=== PATIENT | female | born 1960 | race Caucasian/White ===

== ENCOUNTER 2017-01-23 10:20 | Day surgery (SDC) | payer BC, OTHER ==
[2017-01-18 16:01] VITALS: BMI 27.8
--- NOTE | 2017-01-22 12:28 | HP ---
HISTORY AND PHYSICAL REASON FOR ADMISSION: Surgery is scheduled for 01/23/2017 HISTORY OF PRESENT ILLNESS: Janie Rutherford is a 56-year-old patient seen with progressive left knee pain. We discussed treatment options. She elected to proceed with left knee arthroscopy. Consent regarding the procedure was obtained. PAST MEDICAL HISTORY: Wge-rotvpho-lubjuripn diabetes, hypertension, hypothyroidism. PAST SURGICAL HISTORY: Carpal tunnel release, section, cholecystectomy, hysterectomy. MEDICATIONS: Celebrex, Lopressor, metformin, Singular, Synthroid, Zoloft. ALLERGIES: SULFA. SOCIAL HISTORY: Patient currently smokes cigarettes. PHYSICAL EXAMINATION: Evaluation left knee range of motion is -2/3to 115 degrees. There is a mild effusion present. There is tenderness along both medial and lateral joint lines. Positive medial Enrrique's. Positive lateral Enrrique's. There is crepitus along the medial and patellofemoral compartments with range of motion. Pain with patellofemoral compression. Ligaments stable. Hip rotation without pain. Distal neurovascular exam intact. Left knee MRI revealed abnormal signal through the medial meniscus. X-RAY: Of the left knee revealed moderate osteoarthritis. IMPRESSION: Internal derangement, left knee with medial meniscal tear. PLAN: Left knee arthroscopy with partial meniscectomy and debridement. Surgery is scheduled for 01/23/2017. MMODL / IJN: [id number] /
[~2017-01-23 10:20] MED LIST: DEXAMETHASONE SOD PHOSPHATE 10 MG/ML 1 ML VIAL IV ONE; HYDROmorphone 0.5 MG/0.5 ML SYRINGE IVP PRN; LACTATED RINGERS 1,000 ML IV SCH; ONDANSETRON 4 MG/2 ML VIAL IVP ONE; ceFAZolin 1,000 MG in DEXTROSE/WATER 1 50ML.BAG IV ONE
[2017-01-23] MEDS ORDERED: LIDOCAINE 1% 20 ML VIAL (10MG/ML) FOR IV START INTRADERMA ONE (10:45)
[2017-01-23 10:54] LABS: Glucose,Whole Blood 90 mg/dL (75-99)
[2017-01-23] MEDS ORDERED: MIDAZOLAM 2 MG/2 ML VIAL ONE (11:39)
[2017-01-23] MEDS ORDERED: SUCCINYLCHOLINE CHLORIDE 100 MG/5 ML SYR IV ONE (11:39)
[2017-01-23] MEDS ORDERED: PROPOFOL 10 MG/ML 20 ML VIAL IV ONE (11:39)
[2017-01-23] MEDS ORDERED: fentaNYL (PF) 50 MCG/ML 2 ML AMP ONE (11:39)
[2017-01-23] MEDS ORDERED: LIDOCAINE 1% INJ 10MG/ML (20 ML MDV) ONE (11:39)
[2017-01-23] MEDS ORDERED: ePHEDrine SULFATE/0.9% NACL/PF 50 MG/5 ML SYRINGE IV ONE (11:39)
[2017-01-23] MEDS ORDERED: BUPIVACAINE (PF) 0.25% 30 ML VIAL SQ ONE ×2 (12:12)
--- NOTE | 2017-01-23 12:35 | P.OP ---
Date of Procedure: 01/23/17 Preoperative Diagnosis: Internal derangement left knee Postoperative Diagnosis: 1. Tear medial and lateral meniscus left knee 2. Grade 2/3 chondromalacia medial femoral condyle left knee 3. Grade 3/4 chondromalacia patellofemoral joint left knee 4. Reactive synovitis medial and suprapatellar compartments left knee Procedure(s) Performed: 1. Arthroscopic partial medial and lateral meniscectomy left knee 2. Arthroscopic chondroplasty medial femoral condyle left knee 3. Arthroscopic chondroplasty patellofemoral joint left knee 4. Arthroscopic partial synovectomy medial and suprapatellar compartments left knee Implants: None Anesthesia: GETA, local Surgeon: Rojelio Lucas Estimated Blood Loss (ml): 5 Pathology: none sent Condition: stable Disposition: PACU Indications for Procedure: 58-year-old patient seen with progressive left knee pain. After treatment options were discussed, she elected to proceed with arthroscopy. Operative Findings: see description of procedure Description of Procedure: Patient was taken to the operative suite. Patient underwent a general anesthetic by the department of anesthesia. Patient was given preoperative antibiotics. The left lower extremity was placed in a well-padded arthroscopic leg piper. The left leg was prepped and draped in the normal sterile orthopedic fashion. A lateral parapatellar and suprapatellar incision was made. Trochars were inserted. Arthroscopy was initiated. Suprapatellar pouch revealed diffuse thick reactive synovitis. The patellofemoral joint appeared articulate congruently. There was grade 3/4 chondromalacia of both the patella and femoral sulcus with osteochondral tears present. The scope was guided into the medial gutter. No loose bodies or plica identified. The scope was then guided into the medial compartment. A medial parapatellar incision was made. Trocar inserted followed by probe. There was a tear involving the posterior horn of the medial meniscus. There were grade 2/3 chondral malacia changes of the medial femoral condyle with some osteochondral tears present. There were grade 2 chondral moist changes of the medial tibial plateau. There was reactive synovitis anteriorly. I performed a partial medial meniscectomy down to stable tissue. I performed a chondroplasty of the medial femoral condyle down to stable tissue and partial synovectomy. The residual meniscus and osteochondral surface were probed and found to be stable. Scope and probe were then guided into the intercondylar notch. Cruciates were identified, probed and found to be stable. The scope and probe were then guided into lateral compartment. There was a small radial tear mid body lateral meniscus. Grade 1 chondral moist changes of the tibial plateau. No loose bodies or reactive synovitis. A partial lateral meniscectomy was performed on a stable tissue. The residual meniscus was stable. The scope was in guided back into the suprapatellar compartment. Introduced a motorized shaver into the super patellar compartment. I debrided some piecemeal fragments of meniscus I encountered. I performed a chondroplasty of both the patella and femoral sulcus getting down to stable osteochondral tissue. I performed a partial synovectomy. The residual osteochondral surfaces appeared stable. We again noted grade 3 and 4 chondral malacia changes. Instruments were now removed from the joint. The joint was infiltrated with .25% Marcaine. Steri-Strips were applied to the portal sites. Sterile dressings were applied. The patient was placed into a MIKAEL hose. No tourniquet was utilized. The patient was awakened, transferred to a bed and taken to recovery stable satisfactory condition.
[2017-01-23 12:38] VITALS: TEMP 97
[2017-01-23 12:59] LABS: Glucose,Whole Blood 111 mg/dL (75-99)
[2017-01-23 14:11] VITALS: RESP 18
[2017-01-23 14:31] VITALS: BP 142/78; PULSE 69
== END 2017-01-23 15:21 | disposition home or self-care (01) ==
LOC: OR 10:20
PROVIDERS: ATTEND Orthopaedic Surgery
DX: S83.242A Other tear of medial meniscus, current injury, left knee, initial encounter (principal); S83.282A Other tear of lateral meniscus, current injury, left knee, initial encounter; X58.XXXA Exposure to other specified factors, initial encounter; M94.262 Chondromalacia, left knee; M65.862 Other synovitis and tenosynovitis, left lower leg; I10 Essential (primary) hypertension; E03.9 Hypothyroidism, unspecified; E11.9 Type 2 diabetes mellitus without complications; Z79.84 Long term (current) use of oral hypoglycemic drugs; Z88.2 Allergy status to sulfonamides; F17.210 Nicotine dependence, cigarettes, uncomplicated
CPT/HCPCS: 29880; J2250; J1100; J2405; J2001; J3010; J0690; J0330; J2704; J1170

== ENCOUNTER → 2017-05-31 | Outpatient (CLI) | payer BC, OTHER | END | disposition home or self-care (01) | LOC: LABPAT 09:36 | PROVIDERS: ATTEND Orthopaedic Surgery | DX: Z01.812 Encounter for preprocedural laboratory examination (principal) | CPT/HCPCS: 87070 ==

== ENCOUNTER 2017-06-24 10:15 | Inpatient (IN) | payer BC, OTHER ==
[2017-06-12 12:08] VITALS: BMI 29.2
--- NOTE | 2017-06-23 13:13 | HP ---
HISTORY AND PHYSICAL Surgery scheduled for 06/24/2017. Janie Rutherford is a 56-year-old patient seen with symptomatic left knee osteoarthritis. After we had treatment options discussed, she elected to proceed with left total knee arthroplasty. Consent regarding procedure was obtained. Medical clearance was provided by Dr. Myron Krueger. PAST MEDICAL HISTORY: Hypothyroidism, hypertension, tad-wzbbzwr-xzybkzsog diabetes, depression. PAST SURGICAL HISTORY: Carpal tunnel release, section, cholecystectomy, hysterectomy, left knee arthroscopy. MEDICATIONS: Celebrex, Lopressor, metformin, [place], singular, Synthroid, Valium, Zoloft. ALLERGIES: SULFA. SOCIAL HISTORY: Patient currently smokes 1 pack cigarettes daily. PHYSICAL EXAMINATION: Evaluation left knee: Range of motion is -3 to 115 degrees. Tenderness along the medial joint line. Positive medial Enrrique's. There is crepitus along the medial and patellofemoral compartments with range of motion. Pain with patellofemoral compression. Ligaments stable. Hip rotation without pain. Distal neurovascular exam is intact. RADIOGRAPHS: Left knee radiographs revealed moderate to severe medial compartment and moderate patellofemoral compartment osteoarthritis. IMPRESSION: 1. Left knee osteoarthritis. 2. Hypertension. 3. Btl-fxwiude-vwnjetwyn diabetes. 4. Hypothyroidism. PLAN: Left total knee arthroplasty. MMODL / IJN: [id number] /
[~2017-06-24 10:15] MED LIST changes: +ACETAMINOPHEN TAB 500 MG TAB PO ONE; -DEXAMETHASONE SOD PHOSPHATE 10 MG/ML 1 ML VIAL IV ONE; -HYDROmorphone 0.5 MG/0.5 ML SYRINGE IVP PRN; -LACTATED RINGERS 1,000 ML IV SCH; +MELOXICAM 7.5 MG TAB PO ONE; -ONDANSETRON 4 MG/2 ML VIAL IVP ONE; +TRANEXAMIC ACID 1,000 MG in SODIUM CHLORIDE 0.9% 50 ML IVPB ONE; -ceFAZolin 1,000 MG in DEXTROSE/WATER 1 50ML.BAG IV ONE; +ceFAZolin IN SWFI 2 GM/20 ML SYRINGE IVP ONE
[2017-06-24] MEDS ORDERED: LACTATED RINGERS 1,000 ML IV ONE (11:02)
[2017-06-24] MEDS ORDERED: LIDOCAINE 1% 20 ML VIAL (10MG/ML) FOR IV START INTRADERMA ONE (11:03)
[2017-06-24 11:23] LABS: Glucose,Whole Blood 106 mg/dL (75-99)
[2017-06-24] MEDS ORDERED: ONDANSETRON 4 MG/2 ML VIAL ONE (11:41)
[2017-06-24] MEDS ORDERED: MIDAZOLAM 2 MG/2 ML VIAL ONE ×2 (11:42→12:46)
[2017-06-24] MEDS ORDERED: MIDAZOLAM 2 MG/2 ML VIAL IVP ONE (11:51)
[2017-06-24] MEDS ORDERED: ROPIVACAINE 246.25 MG, EPINEPHrine 0.5 MG, KETOROLAC 30 MG, cloNIDine HCL/PF 80 MCG, WA... MISCELLANE ONE ×5 (11:52)
[2017-06-24] MEDS ORDERED: fentaNYL (PF) 50 MCG/ML 2 ML AMP ONE (12:46)
[2017-06-24] MEDS ORDERED: SODIUM CHLORIDE 0.9% 100 ML BAG ONE (12:46)
[2017-06-24] MEDS ORDERED: PROPOFOL 10 MG/ML 20 ML VIAL IV ONE (12:46)
[2017-06-24] MEDS ORDERED: TRANEXAMIC ACID 1,000 MG/10 ML VIAL ONE (12:46)
[2017-06-24] MEDS ORDERED: ROPIVACAINE 1,100 MG, SODIUM CHLORIDE 0.9% 330 ML MISCELLANE PRN ×2 (13:51)
--- NOTE | 2017-06-24 13:52 | P.ONQ ---
Anesthesiology Proc Note - PNB - Peripheral Nerve Block Performed Left Adductor Canal Indication: Acute Post-Operative Pain, Requested by physician (Dr Lucas) Sedation Type: Sedate with meaningful contact maintained Preparation: Sterile Dressing Position: Supine Catheter: Indwelling Needle Types: Other (see comment) (You) Needle Size: 100mm (4") Needle Gauge: 21 Technique: Ultrasound (20cc) Blood Aspirated: No Pain Paresthesia on Injection Noted: No Resistance on Injection: Normal Events: Uneventful and Well Tolerated
[2017-06-24] MEDS ORDERED: NALOXONE 0.4 MG/ML 1 ML VIAL IV PRN (14:40)
[2017-06-24] MEDS ORDERED: MORPHINE SULFATE 4MG/4ML SYRG IVP PRN ×3 (14:40)
[2017-06-24] MEDS ORDERED: ONDANSETRON 4 MG/2 ML VIAL IVP PRN (14:40)
[2017-06-24] MEDS ORDERED: HYDROcodone/APAP 7.5-325MG 1 EACH TAB PO PRN (14:40)
--- NOTE | 2017-06-24 14:40 | P.OP ---
Date of Procedure: 06/24/17 Preoperative Diagnosis: Left knee osteoarthritis Postoperative Diagnosis: Left knee osteoarthritis Procedure(s) Performed: Left total knee arthroplasty Implants: 1. Lelia persona size 7 left narrow cemented cruciate retaining femur 2. Lelia persona size E left cemented tibia 3. Lelia persona 10 mm medial congruent polyethylene tibial insert 4. Lelia persona 38 mm all polyethylene cemented patella Anesthesia: regional (Adductor canal catheter), local, spinal Surgeon: Rojelio Lucas Sap Data Analyst #1: Laureano Shine Estimated Blood Loss (ml): 50 Pathology: other (Bone) Condition: stable Disposition: PACU Indications for Procedure: 56-year-old patient seen with symptomatic left knee osteoarthritis. After treatment options were discussed, she elected to proceed with total knee arthroplasty. Operative Findings: See description of procedure Description of Procedure: Patient was taken to the operative suite after having and adductor canal catheter placed by the department of anesthesia. Patient underwent a spinal anesthetic by the department of anesthesia. Patient was given preoperative IV intake antibiotics and TXA. A well-padded tourniquet was placed about the left lower extremity. The lower extremity was then prepped and draped in the normal sterile orthopedic fashion. The extremity was elevated, a tourniquet was insufflated to 300. A standard anterior incision was made sharply through skin. Dissection was taken down through the subcutaneous soft tissues down to the extensor mechanism. A medial arthrotomy was performed, patella was everted and knee was flexed. There was advanced osteoarthritis noted. A proximal tibial cutting guide was positioned. Proximal tibial cut was made. A distal intramedullary femoral cutting guide was positioned, distal femoral cut made. We placed the appropriate sizing guide and selected the appropriate size. A distal 4-in-1 femoral cutting block was positioned, distal femoral cuts were made. We now placed a trial femoral component into position, along with an appropriate size tibial tray and insert. We now took the knee through range of motion and had full extension good flexion and good overall soft tissue balance noted. The patella was everted and a flush cut made with patellar quad tendon. We templated the patella, appropriate drill holes were made. An appropriate trial patella was positioned, knee was taken through full range of motion with the patella tracking very nicely. The trial patella was removed. Drill holes were made through the femoral component. All trial components were removed after marking off the appropriate rotation of the tibia. Retractors were now positioned along the proximal tibia. An appropriate keel punch was made with the appropriate size tibial guide. At this point appropriate size implants were chosen and opened. The joint was irrigated copiously with pulse lavage mechanical irrigation. The posterior capsule was infiltrated local analgesic. We mixed antibiotic methylmethacrylate. Once the methyl methacrylate was ready , the tibial component was cemented into place removing any excess methylmethacrylate. The femoral component was cemented into place removing the removing any excess methylmethacrylate. We then inserted the appropriate size polyethylene tibial insert. We made sure that it was locked into position. We took the knee into full extension, and then back in a flexion making sure we had removed any excess methylmethacrylate. The patellar component was then cemented down and secured with clamp. Excess methylmethacrylate removed. We kept the knee in full extension, patellar clamp in position until methylmethacrylate had hardened. Once it had hardened the patellar clamp was removed. The knee was taken through full range of motion. The patella tracked nicely. There was good soft tissue balancing. The tourniquet was now released. Additional hemostasis was achieved via electrocautery. A second gram of TXA was given. The wound was irrigated with pulse lavage mechanical irrigation. The superficial soft tissues were infiltrated local analgesic. The extensor mechanism was repaired with Vicryl. We checked the repair with range of motion and it was stable. The subcutaneous soft tissues were repaired with Vicryl in layers. The skin was approximated with pernio/Dermabond. Sterile dressings were applied followed by loose web roll and Magdi bandage. The patient was transferred to a bed, and taken to recovery in stable and satisfactory condition. Bill NICHOLE assisted with the procedure.
--- NOTE | 2017-06-24 15:14 | XR ---
EXAMINATION TYPE: XR knee limited LT DATE OF EXAM: 06/24/2017 CLINICAL HISTORY: Postoperative evaluation Two views of the left knee are submitted. Identified are changes of total knee arthroplasty with fem oral and tibial components appearing well seated. Postsurgical soft tissue changes are noted. Align ment is anatomic.
[2017-06-24 15:28] LABS: Glucose,Whole Blood 111 mg/dL (75-99)
[2017-06-24] MEDS ORDERED: hydrALAZINE HCL 20 MG/ML 1 ML VIAL IVP ONE (15:35)
[2017-06-24] MEDS: LACTATED RINGERS 1,000 ML IV SCH (16:07)
[2017-06-24] MEDS: INSULIN ASPART 100 UNIT/ML 1 ML 10 ML VIAL SQ SCH (18:04)
[2017-06-24] MEDS: traMADol 50 MG TAB PO SCH ×2 (18:06→21:13)
[2017-06-24] MEDS ORDERED: LORATADINE 10 MG TAB PO PRN (18:25)
[2017-06-24] MEDS ORDERED: ALBUTEROL NEBULIZED 2.5 MG/3 ML INHALATION PRN (18:27)
[2017-06-24 20:53] LABS: Glucose,Whole Blood 111 mg/dL (75-99)
[2017-06-24] MEDS ORDERED: ENOXAPARIN 30 MG/0.3 ML SYRINGE SQ SCH (21:00)
[2017-06-24] MEDS ORDERED: ATORVASTATIN 40 MG TAB PO SCH (21:00)
[2017-06-24] MEDS ORDERED: MONTELUKAST 10 MG TAB PO SCH (21:00)
[2017-06-24] MEDS ORDERED: SENNOSIDES-DOCUSATE SODIUM 1 EACH TAB PO SCH (21:00)
[2017-06-24] MEDS: metFORMIN 500 MG TAB PO SCH (21:12)
[2017-06-24] MEDS: ceFAZolin IN SWFI 2 GM/20 ML SYRINGE IVP SCH (21:12)
[2017-06-24] MEDS: METOPROLOL TARTRATE 50 MG TAB PO SCH (21:13)
[2017-06-25] MEDS: INSULIN ASPART 100 UNIT/ML 1 ML 10 ML VIAL SQ SCH ×2 (01:15→07:14)
[2017-06-25] MEDS: hydrOXYzine PAMOATE 25 MG CAP PO PRN ×3 (01:30→12:51)
[2017-06-25] MEDS: HYDROcodone/APAP 7.5-325MG 1 EACH TAB PO PRN ×3 (01:31→12:50)
[2017-06-25] MEDS ORDERED: HYDROmorphone 2 MG TAB PO PRN ×2 (03:54→03:55)
[2017-06-25] MEDS ORDERED: HYDROmorphone 4 MG TABLET PO PRN (03:55)
[2017-06-25] MEDS: LACTATED RINGERS 1,000 ML IV SCH (04:50)
[2017-06-25] MEDS: ceFAZolin IN SWFI 2 GM/20 ML SYRINGE IVP SCH (04:50)
[2017-06-25] MEDS ORDERED: LEVOTHYROXINE 75 MCG TAB PO SCH (06:30)
[2017-06-25] MEDS: metFORMIN 500 MG TAB PO SCH (07:15)
[2017-06-25 07:16] LABS: Glucose,Whole Blood 120 mg/dL (75-99)
[2017-06-25] MEDS: METOPROLOL TARTRATE 50 MG TAB PO SCH (07:16)
[2017-06-25 07:35] LABS: Basophils % (A) 0 %; Eosinophils # (A) 0.1 k/uL (0-0.7); Eosinophils % (A) 1 %; HCT 40.3 % (34.0-46.0); HGB 12.9 gm/dL (11.4-16.0); Lymphocytes # (A) 2.5 k/uL (1.0-4.8); Lymphocytes % (A) 26 %; MCH 29.5 pg (25.0-35.0); MCHC 32.1 g/dL (31.0-37.0); MCV 91.8 fL (80.0-100.0); Mean Platelet Volume 7.9; Monocytes # (A) 0.6 k/uL (0-1.0); Monocytes % (A) 6 %; Neutrophils # (A) 6.5 k/uL (1.3-7.7); Neutrophils % (A) 66 %; Platelet Count 162 k/uL (150-450); RBC 4.39 m/uL (3.80-5.40); RDW 13.4 % (11.5-15.5); WBC 9.8 k/uL (3.8-10.6)
--- NOTE | 2017-06-25 08:16 | P.PN ---
Progress Note - Text The patient is status post left adductor canal catheter placement. The catheter was placed for postoperative pain control, status post total left arthroplasty. Ropivacaine 0.2% is infusing at 8 mLs per hour. The patient has no complaints of left lower extremity numbness or weakness. Patient's VAS score is 1- 2-10. Assessment: Patient's adductor canal catheter is in place and working appropriately. Plan: continue infusion and adjust it as needed.
[2017-06-25] MEDS ORDERED: MELOXICAM 7.5 MG TAB PO SCH (09:00)
[2017-06-25] MEDS ORDERED: RIVAROXABAN 10 MG TAB PO SCH (09:00)
[2017-06-25] MEDS ORDERED: SERTRALINE 100 MG TAB PO SCH (09:00)
[2017-06-25] MEDS ORDERED: FAMOTIDINE 20 MG TAB PO SCH (09:00)
[2017-06-25 09:17] VITALS: BP 131/62; PULSE 89; RESP 16; TEMP 97.8
[2017-06-25] MEDS: traMADol 50 MG TAB PO SCH (09:41)
--- NOTE | 2017-06-25 11:04 | P.PN ---
Subjective Progress Note Date: 06/25/17 Principal diagnosis: Status post left total knee arthroplasty Patient seen today resting in her hospital bed, she sleeping, she is easily woken up. She is walked with therapy through the halls, she has not done stairs yet. She admits to some increasing pain in the anterior knee. She denies any headaches, lightheadedness, chest pain or shortness of breath. Objective - Vital Signs Vital signs: Vital Signs Temp 97.8 F 06/25/17 07:00 Pulse 89 06/25/17 07:00 Resp 16 06/25/17 07:00 BP 131/62 06/25/17 07:00 Pulse Ox 95 06/25/17 07:00 Intake & Output 06/24/17 06/25/17 06/25/17 18:59 06:59 18:59 Intake Total 900 560 Output Total 50 Balance 850 560 Intake: IV 900 Intake, IV Titration 560 Amount Lactated Ringers 1,000 ml 560 @ 80 mls/hr IV .[id number] [facility] Rx#:[id number] Output: Estimated Blood Loss 50 Other: Voiding Method Toilet Toilet # Voids 1 - Exam Left lower extremity: Incision is clean, dry, and intact. The prineo tape is in good condition. There is minimal soft tissue swelling and ecchymosis surrounding the medial and lateral aspects of the incision. Calf is soft, no tenderness with palpation. Plantar flexion, dorsiflexion, EHL, FHL are intact. Sensory exam to light touch throughout the extremity is intact, dorsal pedis pulses 2+. - Labs CBC & Chem 7: 06/25/17 06:54 Labs: Abnormal Lab Results - Last 24 Hours (Table) 06/24/17 06/24/17 06/24/17 Range/Units 11:14 15:25 20:45 POC Glucose (mg/dL) 106 H 111 H 111 H (75-99) mg/dL 06/25/17 Range/Units 07:13 POC Glucose (mg/dL) 120 H (75-99) mg/dL Assessment and Plan Plan: Assessment:- 1. Postop day #1 status post left total knee arthroplasty Plan: 1. Pain control, continue supportive oral medication 2. GI and DVT prophylaxis, continue Xarelto 10 mg during inpatient stay 3. Continue work physical therapy, including stairs 4. Daily dressing changes/ice and elevate 5. Medical recommendations 6. Discharge planning: Patient may be discharged home today Time with Patient: Less than 30
[2017-06-25 11:21] LABS: Glucose,Whole Blood 134 mg/dL (75-99)
--- NOTE | 2017-06-25 13:16 | P.CONS ---
History of Present Illness - Reason for Consult Consult date: 06/25/17 - Chief Complaint Medical management. - History of Present Illness This is a history of physical on a 56-year-old white female with known history of remote myocardial infarction and COPD who is essentially admitted for orthopedic procedure repair of her knee. The patient states has had significant wheezing. Again, had a long discussion regarding smoking cessation. I am essentially consult for medical management element. Pain is otherwise well controlled. No voiding symptoms are noted. Review of Systems Constitutional: Denies chills, Denies fever Eyes: denies blurred vision, denies pain Ears, nose, mouth and throat: Denies headache, Denies sore throat Cardiovascular: Denies chest pain, Denies shortness of breath Respiratory: Denies cough Gastrointestinal: Denies abdominal pain, Denies diarrhea, Denies nausea, Denies vomiting Past Medical History Past Medical History: COPD, Diabetes Mellitus, Eye Disorder, Hyperlipidemia, Hypertension, Myocardial Infarction (MS), Osteoarthritis (OA), Thyroid Disorder Additional Past Medical History / Comment(s): MS 15 yrs. ago, states was anxiety related, no further problems, macular degeneration Last Myocardial Infarction Date:: 2000 History of Any Multi-Drug Resistant Organisms: None Reported Past Surgical History: Section, Cholecystectomy, Heart Catheterization , Hysterectomy, Orthopedic Surgery Additional Past Surgical History / Comment(s): Carpal tunnel release bilat, bone removed from both thumbs with grafts, arthroscopy knee Past Anesthesia/Blood Transfusion Reactions: No Reported Reaction, Family History of Problems w/ Anesthesia Additional Past Anesthesia/Blood Transfusion Reaction / Comm: daughter had problem w/intubation Past Psychological History: Anxiety Smoking Status: Current every day smoker Past Alcohol Use History: None Reported Additional Past Alcohol Use History / Comment(s): 1 PPD x 35 yrs, trying to quit , down to 1/2ppd Past Drug Use History: None Reported - Past Family History Mother Family Medical History: Cancer Additional Family Medical History / Comment(s): Colon Father Family Medical History: Cancer Additional Family Medical History / Comment(s): Colon Medications and Allergies Home Medications Medication Instructions Recorded Confirmed Type Levothyroxine Sodium [Synthroid] 75 mcg PO DAILY 10/14/15 06/24/17 History Metoprolol Tartrate [Lopressor] 50 mg PO BID 10/14/15 06/24/17 History Montelukast [Singulair] 10 mg PO HS 10/14/15 06/24/17 History Sertraline [Zoloft] 100 mg PO DAILY 10/14/15 06/24/17 History metFORMIN HCL [Glucophage] 500 mg PO BID 10/14/15 06/24/17 History Diazepam [Valium] 5 mg PO TID PRN 01/18/17 06/24/17 History Rosuvastatin Calcium [Crestor] 20 mg PO HS 01/18/17 06/24/17 History Albuterol Inhaler [Ventolin Hfa 1 - 2 puff INHALATION RT-Q6H PRN 06/12/17 History Inhaler] Carboxymethylcellulose Sodium 1 drop BOTH EYES QID PRN 06/12/17 06/24/17 History [Refresh Tears] Vit A/Vit C/Vit E/Zinc/Copper 1 cap PO DAILY 06/12/17 06/24/17 History [ICAPS SOFTGEL] Loratadine [Claritin] 10 mg PO DAILY PRN 06/18/17 06/24/17 History Docusate [Colace] 100 mg PO DAILY #30 capsule 06/25/17 Rx Famotidine [Pepcid] 20 mg PO DAILY #30 tablet 06/25/17 Rx HYDROcodone/APAP 7.5-325MG [[place] 1 - 2 each PO Q6HR PRN #60 tab 06/25/17 Rx 7.5] RX: Aspirin 325 mg PO BID #60 tab 06/25/17 Rx RX: traMADol HCl [Ultram] 50 mg PO Q6H PRN #40 tab 06/25/17 Rx Allergies Allergy/AdvReac Type Severity Reaction Status Date / Time enoxaparin sodium Allergy Rash/Hives Verified 06/24/17 16:08 [From Lovenox] Iodinated Contrast- Oral and Allergy Anaphylaxis Verified 06/24/17 16:08 IV Dye Sulfa (Sulfonamide Allergy Rash/Hives Verified 06/24/17 16:08 Antibiotics) sulfamethoxazole Allergy Rash/Hives Verified 06/24/17 16:08 [From Bactrim] trimethoprim [From Bactrim] Allergy Rash/Hives Verified 06/24/17 16:08 TB Serum Allergy Anaphylaxis Uncoded 06/24/17 16:08 Physical Exam Vitals: Vital Signs Temp Pulse Pulse Resp BP Pulse Ox 04/10/18 07:00 97.8 F 89 16 131/62 95 06/25/17 01:23 74 18 130/70 92 L 06/24/17 19:40 98.6 F 70 18 106/55 90 L 06/24/17 18:00 66 18 97/67 91 L 06/24/17 17:45 58 L 18 105/59 92 L 06/24/17 17:30 59 L 18 104/77 91 L 06/24/17 17:15 61 18 96/61 91 L 06/24/17 17:00 60 18 133/60 92 L 06/24/17 16:45 59 L 18 120/63 91 L 06/24/17 16:30 55 L 18 126/65 91 L 06/24/17 16:15 97.1 F L 57 L 18 140/77 94 L 06/24/17 15:40 55 L 16 180/89 96 06/24/17 15:25 56 L 16 150/81 98 06/24/17 15:10 56 L 16 152/81 99 06/24/17 14:55 97.6 F 63 16 126/65 98 06/24/17 14:48 60 16 149/75 97 Intake and Output 06/24/17 06/25/17 06/25/17 22:59 06:59 14:59 Intake Total 560 Balance 560 Intake: Intake, IV Titration 560 Amount Lactated Ringers 1,000 ml 560 @ 80 mls/hr IV .[id number] [facility] Rx#:[id number] Other: Voiding Method Toilet Toilet # Voids 1 1 - Constitutional General appearance: no acute distress - EENT Eyes: EOMI - Neck Neck: no lymphadenopathy - Respiratory Respiratory: bilateral: CTA - Cardiovascular Rhythm: regular Heart sounds: normal: S1, S2 Abnormal Heart Sounds: no S3 Gallop - Neurologic Neurologic: CNII-XII intact Results CBC & Chem 7: 06/25/17 06:54 Labs: Abnormal Lab Results - Last 24 Hours (Table) 06/24/17 06/24/17 06/25/17 Range/Units 15:25 20:45 07:13 POC Glucose (mg/dL) 111 H 111 H 120 H (75-99) mg/dL 06/25/17 Range/Units 11:14 POC Glucose (mg/dL) 134 H (75-99) mg/dL Assessment and Plan (1) CAD (coronary artery disease) Current Visit: Yes Status: Acute Code(s): I25.10 - ATHSCL HEART DISEASE OF [place] CORONARY ARTERY W/O ANG PCTRS SNOMED Code(s): 35947095 (2) COPD (chronic obstructive pulmonary disease) Current Visit: Yes Status: Acute Code(s): J44.9 - CHRONIC OBSTRUCTIVE PULMONARY DISEASE, UNSPECIFIED SNOMED Code(s): 51810600 (3) Tobacco abuse Current Visit: Yes Status: Acute Code(s): Z72.0 - TOBACCO USE SNOMED Code( s): 537678451 (4) Osteoarthritis of left knee Current Visit: Yes Status: Acute Code(s): M17.12 - UNILATERAL PRIMARY OSTEOARTHRITIS, LEFT KNEE SNOMED Code(s): 266596938906382 Plan: Reconcile home medications. Pulmonary toilet will be instituted as standard protocol postoperative surgery. We will continue to follow from a medical perspective. Consult home medications. Tobacco cessation again discussed at length with the patient. Time with Patient: Less than 30
[2017-06-25 13:50] LABS: Hemoglobin A1C 6.7 % (4.0-6.0)
== END 2017-06-25 16:00 | disposition home health service (06) | DRG 470 ==
LOC: 2ORMAIN 10:33 → 3SUR 15:02
PROVIDERS: ADMIT Orthopaedic Surgery; ATTEND Orthopaedic Surgery
PROC: 0SRD0J9 Replacement of Left Knee Joint with Synthetic Substitute, Cemented, Open Approach (ICD-10-PCS; principal; 2017-06-24 13:00)
DX: M17.12 Unilateral primary osteoarthritis, left knee (principal); E03.9 Hypothyroidism, unspecified; I10 Essential (primary) hypertension; F32.9 Major depressive disorder, single episode, unspecified; E11.9 Type 2 diabetes mellitus without complications; F17.210 Nicotine dependence, cigarettes, uncomplicated; I25.10 Atherosclerotic heart disease of native coronary artery without angina pectoris; J44.9 Chronic obstructive pulmonary disease, unspecified; H35.30 Unspecified macular degeneration; E78.00 Pure hypercholesterolemia, unspecified; F41.9 Anxiety disorder, unspecified; Z79.84 Long term (current) use of oral hypoglycemic drugs; Z90.49 Acquired absence of other specified parts of digestive tract; Z90.710 Acquired absence of both cervix and uterus; Z79.899 Other long term (current) drug therapy; Z79.891 Long term (current) use of opiate analgesic; Z88.2 Allergy status to sulfonamides; I25.2 Old myocardial infarction; Z71.6 Tobacco abuse counseling; Z80.0 Family history of malignant neoplasm of digestive organs; Z79.82 Long term (current) use of aspirin; Z88.7 Allergy status to serum and vaccine; Z88.8 Allergy status to other drugs, medicaments and biological substances; Z88.1 Allergy status to other antibiotic agents; Z91.041 Radiographic dye allergy status; Z79.1 Long term (current) use of non-steroidal anti-inflammatories (NSAID)
CPT/HCPCS: 83036; 85025; 88300

== ENCOUNTER → 2018-02-05 | Outpatient (CLI) | payer BC, OTHER ==
--- NOTE | 2018-02-05 11:37 | MR ---
EXAMINATION TYPE: MR lumbar spine wo con DATE OF EXAM: 02/05/2018 9:37 AM COMPARISON: NONE HISTORY: Low back pain, left hip and leg pain Multiplanar, MultiSpin echo imaging of the lumbar spine was performed. L1-L2: Normal disc appearance without desiccation. No herniation, protrusion or disc bulging. No ca nal stenosis is present. Foramina are patent bilaterally. L2-L3: Normal disc appearance without desiccation. No herniation, protrusion or disc bulging. No ca nal stenosis is present. Foramina are patent bilaterally. L3-L4: Normal disc appearance without desiccation. No herniation, protrusion or disc bulging. No ca nal stenosis is present. Foramina are patent bilaterally. L4-L5: Mild decreased signal ossified compatible with degenerative disc disease. Mild effacement vent ral thecal sac. No evidence for central stenosis or disc herniation. Grade 1 anterolisthesis L4 on L5 of 3 mm related to severe facet joint arthropathy. Moderate bilateral foraminal encroachment. L5-S1: Severe disc desiccation identified. Broad-based subligamentous herniation noted with effacemen t of the ventral thecal sac and right lateral recess stenosis and right foraminal encroachment. Grade 1 anterolisthesis L5 on S1 measuring 6 mm. Severe facet joint arthropathy. Bilateral foraminal encro achment right greater than left. Lumbar segments are intact. No paraspinal masses are identified. Conus medullaris has a normal appe arance. IMPRESSION: 1. Degenerative disc disease L4-5 and L5-S1. 2. Broad-based subligamentous herniation L5-S1 with right lateral recess stenosis and right foraminal encroachment.
== END | disposition home or self-care (01) ==
LOC: RADMRIMAIN 08:20
PROVIDERS: ATTEND Orthopaedic Surgery
DX: M48.07 Spinal stenosis, lumbosacral region (principal); M51.37 Other intervertebral disc degeneration, lumbosacral region
CPT/HCPCS: 72148

== ENCOUNTER → 2018-03-26 | Outpatient (CLI) | payer BC, OTHER ==
[2018-03-25 15:22] VITALS: BMI 27.8
[2018-03-26 14:44] VITALS: BP 133/93; PULSE 62; RESP 18
--- NOTE | 2018-03-27 06:36 | P.PAINCN ---
History of Present Illness - Reason for Consult Consult date: 03/26/18 - History of Present Illness This is [facility] consultation for this 57 years old female with a chronic history of severe low back pain, pain started 5 years ago, she denies any initiating event, patient reported that her pain increased significantly over the last 6 months, the pain is constant and localized in the low back area, and radiated to the left lower extremity, she denies any fever or numbness but she denies any change in the bowel movement or urination she is currently on [place] 7.5/325 when necessary, and she continued to have pain, but the pain medication helping her to be able to do activities of daily livings and able to function, she reports intensity of the pain is 6/10 and increases with activity to 8 or 9/ 10, she denies any side effect of the medication, and she is getting prescription refills from her primary care Past Medical History Past Medical History: Diabetes Mellitus, Deep Vein Thrombosis (DVT), Myocardial Infarction ([place]), Osteoarthritis (OA), Thyroid Disorder Additional Past Medical History / Comment(s): chronic back pain-herniated discs Last Myocardial Infarction Date:: 2000 History of Any Multi-Drug Resistant Organisms: None Reported Past Surgical History: Section, Cholecystectomy, Heart Catheterization , Hysterectomy, Joint Replacement, Orthopedic Surgery Additional Past Surgical History / Comment(s): Lt total knee,Carpal tunnel release bilat, bone remove from both thumbs with grafts,vein stripping Past Anesthesia/Blood Transfusion Reactions: No Reported Reaction, Family History of Problems w/ Anesthesia Additional Past Anesthesia/Blood Transfusion Reaction / Comm: daughter had problem w/intubation Past Psychological History: Anxiety Smoking Status: Current every day smoker Past Alcohol Use History: None Reported Additional Past Alcohol Use History / Comment(s): Smokes 1 PPD x 35 yrs. Past Drug Use History: None Reported - Past Family History Mother Family Medical History: Cancer Additional Family Medical History / Comment(s): Colon Father Family Medical History: Cancer Additional Family Medical History / Comment(s): Colon Medications and Allergies Home Medications Medication Instructions Recorded Confirmed Type Levothyroxine Sodium [Synthroid] 75 mcg PO DAILY 10/14/15 03/26/18 History Metoprolol Tartrate [Lopressor] 37.5 mg PO BID 10/14/15 03/26/18 History Montelukast [Singulair] 10 mg PO HS 10/14/15 03/26/18 History Sertraline [Zoloft] 100 mg PO DAILY 10/14/15 03/26/18 History metFORMIN HCL [Glucophage] 500 mg PO BID 10/14/15 03/26/18 History Diazepam [Valium] 5 mg PO TID PRN 01/18/17 03/26/18 History Rosuvastatin Calcium [Crestor] 20 mg PO HS 01/18/17 03/26/18 History Albuterol Inhaler [Ventolin Hfa 1 - 2 puff INHALATION RT-Q6H PRN 06/12/17 History Inhaler] Carboxymethylcellulose Sodium 1 drop BOTH EYES QID PRN 06/12/17 03/26/18 History [Refresh Tears] Vit A/Vit C/Vit E/Zinc/Copper 1 cap PO DAILY 06/12/17 03/26/18 History [ICAPS SOFTGEL] Loratadine [Claritin] 10 mg PO DAILY PRN 06/18/17 03/26/18 History HYDROcodone/APAP 7.5-325MG [[place] 1 - 2 each PO Q6HR PRN #60 tab 06/25/17 Rx 7.5] Aspirin 325 mg PO DAILY 03/25/18 03/26/18 History rOPINIRole HCL 0.5 mg PO HS 03/25/18 03/26/18 History Allergies Allergy/AdvReac Type Severity Reaction Status Date / Time enoxaparin sodium Allergy Rash/Hives Verified 03/26/18 14:32 [From Lovenox] Iodinated Contrast- Oral and Allergy Anaphylaxis Verified 03/26/18 14:32 IV Dye Sulfa (Sulfonamide Allergy Rash/Hives Verified 03/26/18 14:32 Antibiotics) sulfamethoxazole Allergy Rash/Hives Verified 03/26/18 14:32 [From Bactrim] trimethoprim [From Bactrim] Allergy Rash/Hives Verified 03/26/18 14:32 TB Serum Allergy Anaphylaxis Uncoded 03/26/18 14:32 Physical Exam Vitals: Vital Signs Pulse Resp BP 03/26/18 14:33 62 18 133/93 Intake and Output 03/26/18 03/26/18 03/27/18 14:59 22:59 06:59 Other: Weight 72.575 kg Social history : smoker , NO ETOH Review of Systems : 1- Constitutional : no chills , no fever , no night sweats , 2- Ears : no ear discharge , no change in hearing 3-Nose, Mouth ,Throat ; no bleeding gums, no sore throat , no epistaxis , 4-Cardiovascular : Denies chest pain, , no orthopnea , no palpitation 5-Respiratory : Denies cough , no dyspnea , no hemoptysis 6-Gastrointestinal :, no change in bowel habits , no coffee- ground emesis . 7-Genitourinary : No hematuria , no discharge , no incontinence, 8-Musculoskeletal : No gait dysfunction , report low back pain , 9- Neurological : no ataxia , no tremor , no sezure , 10-Psychatric , no suicidal ideation no hallucination 11- Endocrine : no cold intolerence , no polyuria , no polydypsia , 12-Hematologic : no easy bleeding , no easy brusing , 13-Allergic / immunology : no angioedema , no wheezing ,no allergic rhinitis 14-Integumentary : no brttle nails , no change hair / nails , no foot/leg ulcers . Physical Examinations : 1-Constitutional : Cooperative , not in acute distress . 2-HEENT : nech ; supple , no Lymphadenopathy , no Thyromegaly , :eyes , no icterus, no photophobia . ENT : , normal oropharynx , no Thrush 3- Respiratory : Chest clear to auscultations Bilaterally , no wheezing 4- Cardiovascular : regular rate and rhythem , S1 , S2 , no S3 , no S4. 5- Gastrointestinal: abdomen soft no tenderness , no organomegally . 6- Genitourinary : Defferred . 7-Integumentary : No cellulitis , no ulcers , normal skin turgor , no cyanotic . 8- neurologic : Cranial nerve II to XII intact , no focal neurological deffecit 9-psychatric : alert , oriented X 3 , appropriate affect , intact judgment and insight . 10-Lymphatic : no Lymphadenopathy. 11- musculoskeltal: Antalgic gait Lumber spine moter stegnth lower extremities ,thigh and legs 5/5 Right side , 5/5 Left side deep tendon reflexes : normal Knee Jerk , normal ankle Jerk positive lumber facet Loading Test bilaterally Range of motion of the lumbar spine Flexion 30 degrees, extension 10 degrees strait leg raising test , positive at 30 degree on the left side, negative on the right Fabere test negative RT and positive LT . Results Comments: MRI of the lumbar spine L4 5 lumbar degenerative disc disease and foraminal stenosis and severe facet arthropathy L5-S1 disc herniation and severe facet arthropathy Assessment and Plan Plan: Assessment and plan= 1-lumbar radiculopathy 2-lumbar disc herniation 3-lumbar spondylosis with lumbar facet arthropathy. Patient had multifactorial causes of her low back pain, the best option at this time is to schedule her to have diagnostic medial branch block lumbar area L3 4/L45/L5-S1 , because the clinical examination support that most of the pain is coming from the facetogenic component, if positive then we will do the radiofrequency ablation of the medial branch , patient should continue to use her medication [place] 7.5/325 , she could benefit from Neurontin 300 mg daily at bedtime increased to twice a day later on Time with Patient: Greater than 30 PQRS Measure Charge Sheet PQRS Narrative: Smoking Status Current every day smoker Do You Want the Pneumonia No Vaccine AT THIS TIME? Blood Pressure 133/93 Pain Intensity [Bilateral 7 Lower Back] Hx Alcohol Use (MH) No Home Medications: Ambulatory Orders Levothyroxine Sodium [Synthroid] 75 mcg PO DAILY 10/14/15 Metoprolol Tartrate [Lopressor] 37.5 mg PO BID 10/14/15 Montelukast [Singulair] 10 mg PO HS 10/14/15 Sertraline [Zoloft] 100 mg PO DAILY 10/14/15 metFORMIN HCL [Glucophage] 500 mg PO BID 10/14/15 Diazepam [Valium] 5 mg PO TID PRN 01/18/17 Rosuvastatin Calcium [Crestor] 20 mg PO HS 01/18/17 Albuterol Inhaler [Ventolin Hfa Inhaler] 1 - 2 puff INHALATION RT-Q6H PRN Carboxymethylcellulose Sodium [Refresh Tears] 1 drop BOTH EYES QID PRN 06/12/17 Vit A/Vit C/Vit E/Zinc/Copper [ICAPS SOFTGEL] 1 cap PO DAILY 06/12/17 Loratadine [Claritin] 10 mg PO DAILY PRN 06/18/17 HYDROcodone/APAP 7.5-325MG [[place] 7.5] 1 - 2 each PO Q6HR PRN #60 tab 06/25/17 Aspirin 325 mg PO DAILY 03/25/18 rOPINIRole HCL 0.5 mg PO HS 03/25/18
== END | disposition home or self-care (01) ==
LOC: PNWHC3 13:32
PROVIDERS: ATTEND Specialist
DX: M51.16 Intervertebral disc disorders with radiculopathy, lumbar region (principal); M47.26 Other spondylosis with radiculopathy, lumbar region; M46.96 Unspecified inflammatory spondylopathy, lumbar region; F17.200 Nicotine dependence, unspecified, uncomplicated; E11.9 Type 2 diabetes mellitus without complications; M19.90 Unspecified osteoarthritis, unspecified site; F41.9 Anxiety disorder, unspecified; I25.2 Old myocardial infarction; Z90.49 Acquired absence of other specified parts of digestive tract; Z90.710 Acquired absence of both cervix and uterus; Z79.899 Other long term (current) drug therapy; Z79.84 Long term (current) use of oral hypoglycemic drugs; Z79.82 Long term (current) use of aspirin; Z91.041 Radiographic dye allergy status; Z88.2 Allergy status to sulfonamides; Z88.7 Allergy status to serum and vaccine; Z98.890 Other specified postprocedural states
CPT/HCPCS: 99211

== ENCOUNTER 2018-04-08 08:34 | Day surgery (SDC) | payer BC, OTHER ==
[2018-04-04 15:10] VITALS: BMI 28.0
[~2018-04-08 08:34] MED LIST changes: -ACETAMINOPHEN TAB 500 MG TAB PO ONE; -MELOXICAM 7.5 MG TAB PO ONE; +SODIUM CHLORIDE 0.9% 500 ML 500 ML IV SCH; -TRANEXAMIC ACID 1,000 MG in SODIUM CHLORIDE 0.9% 50 ML IVPB ONE; -ceFAZolin IN SWFI 2 GM/20 ML SYRINGE IVP ONE
[2018-04-08 09:15] VITALS: RESP 18; TEMP 97.4
[2018-04-08] MEDS ORDERED: LIDOCAINE 1% 20 ML VIAL (10MG/ML) FOR IV START INTRADERMA ONE (09:33)
[2018-04-08] MEDS ORDERED: LACTATED RINGERS 1,000 ML IV ONE (09:33)
[2018-04-08 09:34] LABS: Glucose,Whole Blood 90 mg/dL (75-99)
--- NOTE | 2018-04-08 10:21 | P.PCN ---
Date of Procedure: 04/08/18 Procedure(s) Performed: PREOPERATIVE DIAGNOSIS : 1- Lumbar spondylosis with Facet Arthropathy without myelopathy . 2- Lumber degenerative disc disease POSTOPERATIVE DIAGNOSIS: 1- Lumbar spondylosis with Facet Arthropathy without myelopathy . 2- Lumber degenerative disc disease PROCEDURE: Diagnostic bilateral L3 -4 , L4 -5 , and L5-S1 medial branch block under fluoroscopy ANESTHESIA: Local with Ropivacain 0.5 % 6 ml , moderate sedation with intravenous Versed mg and Fentanyl mcg. EBL: Minimal COMPLICATION: None. IV FLUIDS: 100 mL of normal saline. PROCEDURE INDICATION: Chronic low back pain secondary to Facet arthropathy unresponsive to conservative treatment. PROCEDURE DESCRIPTION: the patient was seen and identified in the preop holding area , risks and benefits and possible complications of the procedure and alternative were discussed with the patient, and the patient agreed to proceed with the procedure and signed the consent IV was started and vital signs monitored during the procedure and fluoroscopy was used to maximize the benefit and accuracy of the needle placement, and sedation was given to decrease patient anxiety, patient was taken to the procedure room and placed in prone position vital signs monitored in the back prepped with chlorhexidine X3 then under strict sterile technique using a right oblique fluoroscopy ,the junction of the transverse process and the superior articulating process of the right L3- 4 , L4- 5, and L5-S1 vertebra which corresponding to the fluoroscopy image of the eye of the Dmitri dog on the block side for the medial branches and subsequently , after local infiltration of skin and subcu tissuies with Ropivacaine 0.5 % , one mL at each level , then 22-gauge Quincke-type needles , 3 needle was used , each one of them placed at the junction of the base of the transverse process and the superior articular process at the appropriate level, and the needle was advanced until the periosteum contacted, needle placement confirmed with AP oblique and lateral view and after appropriate needle placement confirmed, and after negative aspiration for heme and CSF and there was no paresthesia 1-1/2 mL of Ropivacaine 0.5% mixed with 20 mg Depo-medrol , then half mL injected at each level after negative aspiration the needle subsequently removed and the same procedure repeated for the left side at left side at L3-4, L4- 5 and L5-S1 levels. At the end of the procedure and the needles removed and a bandage applied after the skin was cleaned the cleaning solution patient taken to recovery room in stable condition and monitors in the recovery room for 20-30 minutes and discharged home in stable condition after discharge criteria met and patient will follow up with the pain clinic in 2-4 weeks
[2018-04-08] MEDS ORDERED: IV FLUID CONTINUATION 1,000 ML IV ONE (10:25)
--- NOTE | 2018-04-08 10:40 | FL ---
EXAMINATION TYPE: FL guided pain mgmt statistic DATE OF EXAM: 04/08/2018 CLINICAL HISTORY: Low back pain. TECHNIQUE: Fluoroscopy. COMPARISON: None. FINDINGS: Fluoroscopic guidance was provided during pain relief procedure performed by Dr. Sorensen . A total of 4 seconds of fluoroscopic time was utilized during the procedure and four spot images a re acquired. Images acquired shows needle localization at several levels in the lower lumbar spine o ff the midline. IMPRESSION: As Above.
[2018-04-08 10:43] VITALS: BP 149/78; PULSE 61
== END 2018-04-08 11:23 | disposition home or self-care (01) ==
LOC: ORPAIN 08:34
PROVIDERS: ATTEND Specialist
DX: G89.29 Other chronic pain (principal); M47.816 Spondylosis without myelopathy or radiculopathy, lumbar region; M51.36 Other intervertebral disc degeneration, lumbar region; Z88.2 Allergy status to sulfonamides; Z88.8 Allergy status to other drugs, medicaments and biological substances; Z91.041 Radiographic dye allergy status
CPT/HCPCS: 64493; 64494; 64495; J2250; J1030; J3010; 99152

== ENCOUNTER 2018-04-23 08:03 | Day surgery (SDC) | payer BC, OTHER ==
[2018-04-22 08:49] VITALS: BMI 28.3
[2018-04-23 09:07] VITALS: TEMP 96.9
[2018-04-23] MEDS ORDERED: LACTATED RINGERS 1,000 ML IV ONE (09:08)
[2018-04-23 09:09] LABS: Glucose,Whole Blood 102 mg/dL (75-99)
[2018-04-23] MEDS ORDERED: LIDOCAINE 1% 20 ML VIAL (10MG/ML) FOR IV START INTRADERMA ONE (09:09)
--- NOTE | 2018-04-23 10:20 | P.PCN ---
Date of Procedure: 04/23/18 Surgeon: Nicole Faulkner Pathology: none sent Condition: stable Disposition: PACU Description of Procedure: PREOPERATIVE DIAGNOSIS : 1- Lumbar spondylosis with Facet Arthropathy without myelopathy . 2- Lumber degenerative disc disease POSTOPERATIVE DIAGNOSIS: 1- Lumbar spondylosis with Facet Arthropathy without myelopathy . 2- Lumber degenerative disc disease PROCEDURE: Diagnostic bilateral L3 -4 , L4 -5 , and L5-S1 medial branch block under fluoroscopy#2 ANESTHESIA: Local with 1% lidocaine; IV moderate conscious sedation with Versed 2 mg and fentanyl 100 g . EBL: Negligible COMPLICATION: None. PROCEDURE INDICATION: Chronic low back pain secondary to Facet arthropathy unresponsive to conservative treatment. PROCEDURE DESCRIPTION: the patient was seen and identified in the preop holding area , risks and benefits and possible complications of the procedure and alternatives were discussed with the patient, and the patient agreed to proceed with the procedure and signed the consent. IV was started and vital signs monitored during the procedure and fluoroscopy was used to maximize the benefit and accuracy of the needle placement, sedation was given to decrease patient anxiety, patient was taken to the procedure room and placed in prone position vital signs monitored. The patient was brought into the procedure room and placed in prone position. Skin was prepped with Chloraprep and draped in a sterile manner. Lidocaine 1 % was used to numb the skin up at the target points that were chosen as follows : at the L5-S1 level which corresponds to the dorsal ramus of L5 the target points were at the superior medial aspect of the sacral ala on each side of the spine on the AP view of fluoroscopy, and for theL2, L3 and L4 medial branches the target points were the connection between the transverse process and the superior to go process of L3, L4 and L5 respectively on the oblique views of fluoroscopy. I used 25-gauge 3-1/2 inch Quincke spinal needles for this procedure and after contacting bone at the target points mentioned above I injected 1 mL of a mixture of Kenalog 40 mg +7 MLS of Marcaine 0.5% PF . Patient tolerated procedure well. At the end of the procedure the needles removed and a bandage applied after the skin was cleaned the cleaning solution. patient was then taken to the recovery room in stable condition and monitored in the recovery room for 20-30 minutes and discharged home in stable condition after discharge criteria met .
[2018-04-23] MEDS ORDERED: IV FLUID CONTINUATION 1,000 ML IV ONE ×2 (10:22)
[2018-04-23 10:28] VITALS: RESP 18
--- NOTE | 2018-04-23 10:32 | FL ---
EXAMINATION TYPE: FL guided pain mgmt statistic DATE OF EXAM: 04/23/2018 HISTORY: Pain 7 sec
[2018-04-23 10:44] VITALS: BP 120/67; PULSE 64
== END 2018-04-23 11:00 | disposition home or self-care (01) ==
LOC: ORPAIN 08:03
PROVIDERS: ATTEND Anesthesiology
DX: G89.29 Other chronic pain (principal); M47.816 Spondylosis without myelopathy or radiculopathy, lumbar region; M51.36 Other intervertebral disc degeneration, lumbar region; E11.9 Type 2 diabetes mellitus without complications; I10 Essential (primary) hypertension; Z79.82 Long term (current) use of aspirin; Z88.2 Allergy status to sulfonamides; Z88.8 Allergy status to other drugs, medicaments and biological substances; Z88.1 Allergy status to other antibiotic agents; Z91.041 Radiographic dye allergy status
CPT/HCPCS: 64493; 64494; 64495; J2250; J3301; J3010; 99152

== ENCOUNTER → 2018-05-19 | Outpatient (CLI) | payer BC, OTHER ==
[2018-05-19 15:14] VITALS: BP 147/83; PULSE 71; RESP 16
--- NOTE | 2018-05-20 07:17 | P.PAINPG ---
Subjective Progress Note Date: 05/19/18 This is follow up visit ,for this 57 years old female with a chronic history of severe low back pain, she is diagnosed with lumbar spondylosis with lumbar facet arthropathy, lumbar disc herniation, status post diagnostic medial branch block lumbar area at L34 /L4 5/L5-S1 X2 , she reported that the pain was 9/10 before the first diagnostic block block to 4/10 after the block, and she gets similar result after the second diagnostic medial branch block, the pain relief was for short-term, and currently she is complaining of pain, the pain is constant and localized in the low back area, and radiated to the left lower extremity, she denies any fever or numbness but she denies any change in the bowel movement or urination she is currently on [place] 7.5/325 when necessary, and she continued to have pain, but the pain medication helping her to be able to do activities of daily livings and able to function, she reports intensity of the pain is 6/10 and increases with activity to 8 or 9/10, she denies any side effect of the medication, and she is getting prescription refills from her primary care Physical Examinations : 1-Constitutional : Cooperative , not in acute distress . 2-HEENT : nech ; supple , no Lymphadenopathy , no Thyromegaly , :eyes , no icterus, no photophobia . ENT : , normal oropharynx , no Thrush 3- Respiratory : Chest clear to auscultations Bilaterally , no wheezing 4- Cardiovascular : regular rate and rhythem , S1 , S2 , no S3 , no S4. 5- Gastrointestinal: abdomen soft no tenderness , no organomegally . 6- Genitourinary : Defferred . 7-Integumentary : No cellulitis , no ulcers , normal skin turgor , no cyanotic . 8- neurologic : Cranial nerve II to XII intact , no focal neurological deffecit 9-psychatric : alert , oriented X 3 , appropriate affect , intact judgment and insight . 10-Lymphatic : no Lymphadenopathy. 11- musculoskeltal: Antalgic gait Lumber spine moter stegnth lower extremities ,thigh and legs 5/5 Right side , 5/5 Left side deep tendon reflexes : normal Knee Jerk , normal ankle Jerk positive lumber facet Loading Test bilaterally Range of motion of the lumbar spine Flexion 30 degrees, extension 10 degrees strait leg raising test , positive at 30 degree on the left side, negative on the right Fabere test negative RT and positive LT . Results Comments: MRI of the lumbar spine L4 5 lumbar degenerative disc disease and foraminal stenosis and severe facet arthropathy L5-S1 disc herniation and severe facet arthropathy Assessment and Plan Patient had multifactorial causes of her low back pain, patient had good result after the diagnostic medial branch block lumbar area L3 4/L45/L5-S1 Patient will be good candidate to have radiofrequency ablation medial branch lumbar area L3 4, L4 5, L5-S1, will do the left side first then later on we'll do the right side Objective - Vital Signs Vital signs: Vital Signs Temp Pulse 71 05/19/18 15:05 Resp 16 05/19/18 15:05 BP 147/83 05/19/18 15:05 Pulse Ox 96 05/19/18 15:05 Intake & Output 05/19/18 05/20/18 05/20/18 18:59 06:59 18:59 Weight 75.75 kg PQRS Measure Charge Sheet Measure #130: Documentation of Current Meds in Medical Chart: Patient's medications documented in chart Measure #226: Tobacco Use: Screen & Cessation Intervention: Pt screened for tobacco use AND intervention given Measure #111: Pneumonia Vaccination: Pneumococcal vaccine administered or previously received Measure #47: Advance Care Plan: Advance care planning discussed & documented, pt chose/unable to give Measure #412: Opioid Treatment Agreement: No documentation of signed opioid treatment agreement Measure #408: Opioid Therapy Follow-up Evaluation: Patient had NO f/u eval minimum every 3 months during opioid therapy Measure #317: Preventitive Care & Scrn High Bld Press & F/U: Pre-hypertensive or hypertensive BP documented, pt will f/u with PCP Measure #128: Body Mass Index (BMI) Screening & Follow-up: BMI documented ABOVE normal parameters - f/u documented Measure #131: Pain Assessment & Follow-up: Pain positive & plan documented, Follow-up scheduled Measure #431: Unhealthy Alcohol Use Preventative Care & Scrn: Patient not identified as an unhealthy alcohol user PQRS Narrative: Smoking Status Current every day smoker Do You Want the Pneumonia No Vaccine AT THIS TIME? Blood Pressure 147/83 Pain Intensity [Left Lower 10 Back] Scale Used Numeric (1 - 10) Hx Alcohol Use (MH) No Home Medications: Ambulatory Orders Levothyroxine Sodium [Synthroid] 75 mcg PO DAILY 10/14/15 Metoprolol Tartrate [Lopressor] 25 mg PO BID 10/14/15 Montelukast [Singulair] 10 mg PO HS 10/14/15 Sertraline [Zoloft] 100 mg PO DAILY 10/14/15 metFORMIN HCL [Glucophage] 500 mg PO BID 10/14/15 Diazepam [Valium] 5 mg PO TID PRN 01/18/17 Rosuvastatin Calcium [Crestor] 20 mg PO HS 01/18/17 Albuterol Inhaler [Ventolin Hfa Inhaler] 1 - 2 puff INHALATION RT-Q6H PRN Vit A/Vit C/Vit E/Zinc/Copper [ICAPS SOFTGEL] 1 cap PO DAILY 06/12/17 Loratadine [Claritin] 10 mg PO DAILY PRN 06/18/17 Aspirin 325 mg PO DAILY 03/25/18 rOPINIRole HCL 0.5 mg PO HS 03/25/18 Carboxymethyl/Gly/Poly80/Pf [Refresh Optive Teto-3 Drops] 1 drop BOTH EYES DAILY 04/04/18 HYDROcodone/APAP 7.5-325MG [[place] 7.5] 1 each PO Q8H PRN 04/04/18 amLODIPine [Norvasc] 5 mg PO DAILY 04/22/18 Gabapentin [Neurontin] 300 mg PO BID 05/19/18 Controlled Substance Measures - Controlled Substance Measures Is patient prescribed a controlled substance at discharge?: No
== END ==
LOC: PNWHC3 14:12
PROVIDERS: ATTEND Specialist
DX: M54.5 Low back pain (principal); F17.200 Nicotine dependence, unspecified, uncomplicated; Z79.899 Other long term (current) drug therapy; Z79.84 Long term (current) use of oral hypoglycemic drugs; Z79.891 Long term (current) use of opiate analgesic
CPT/HCPCS: 99211

== ENCOUNTER 2018-06-04 06:45 | Day surgery (SDC) | payer BC, OTHER ==
[2018-05-29 15:59] VITALS: BMI 28.6
[2018-06-04] MEDS ORDERED: LACTATED RINGERS 1,000 ML IV ONE (07:08)
[2018-06-04 07:10] VITALS: TEMP 97.9
[2018-06-04] MEDS ORDERED: LIDOCAINE 1% 20 ML VIAL (10MG/ML) FOR IV START INTRADERMA ONE (07:11)
[2018-06-04 07:20] LABS: Glucose,Whole Blood 99 mg/dL (75-99)
--- NOTE | 2018-06-04 08:41 | P.PCN ---
Date of Procedure: 06/04/18 Surgeon: Nicole Faulkner Pathology: none sent Condition: stable Disposition: PACU Description of Procedure: PREOPERATIVE DIAGNOSIS: Lumbar spondylosis without myelopathy POSTOPERATIVE DIAGNOSIS: Lumbar spondylosis without myelopathy PROCEDURES : Left Radiofrequency thermocoagulation L3-L4, L4-L5, and L5-S1 medial branch, with fluoroscopic guidance ANESTHESIA: IV moderate conscious sedation with versed and fentanyl and local infiltration with lidocaine 1% 5 ml EBL: Minimal PROCEDURE INDICATION: The patient with low back pain secondary to lumbar facet arthropathy who had more than 50% relief of her pain with previous diagnostic lumbar medial branch block with bupivacaine. PROCEDURE DESCRIPTION / TECHNIQUE: The patient was seen and identified in the preoperative area. Risks, benefits, complications, including but not limited to risk of infection ,bleeding , allergic reactions to the medications and no complete pain relief , and alternatives were discussed with the patient, the patient agreed to proceed with the procedure and signed the consent. IV was started. Vital signs remained stable throughout the procedure. Patient was taken to the OR and time out was completed. The patient was placed in the prone position on the procedure table. The lumber area was prepped and draped in the usual sterile fashion. . Vital signs were closely monitored during the procedure .IV sedation was used during the procedure to decrease patients anxiety. The target points were identified as follows: For the L5-S1 level which corresponds to the dorsal ramus of L5 the target point was at the superior medial aspect of the sacral ala on the left- side of the spine on the AP view of fluoroscopy and for the L2, L3, and L4 medial branches the target points were at the connection between the transverse process and the superior articular process of L3, L4, and L5 vertebra respectively on the left oblique view of fluoroscopy. skin was marked, and localized with 1% lidocaineat these points. Subsequently, an 18 [id number] radiofrequency needles with a 10-mm curved active tips were advanced guided by fluoroscopy to each of the target points mentioned above in a superior medial direction to get the active tips as parallel as possible to the medial branches tracks. AP, oblique, and lateral views of fluoroscopy were used to verify needle tips position. Each level then underwent motor testing at 2.5 Hz and 0 to 3 volt with local stimulation, but no radicular symptoms down the legs. Thereafter radiofrequency thermocoagulation at 80 degrees celsius for 90 seconds after injecting 1 ml of PF Marcaine 0.5%(3 mls) with 40 mg of Kenalog. At the end of the procedure, the skin was cleansed and bandages were applied. COMPLICATIONS: No acute complications. DISPOSITION / PLANS: The patient was placed in a supine position and tr ansferred to the recovery area in a stable condition for observation and was discharged from the recovery room after meeting discharge criteria. Home discharge instructions given to the patient by the staff. The patient was reexamined prior to discharge.
[2018-06-04] MEDS ORDERED: IV FLUID CONTINUATION 1,000 ML IV ONE ×3 (08:44)
[2018-06-04 09:02] VITALS: BP 115/67; PULSE 65; RESP 16
--- NOTE | 2018-06-04 10:33 | FL ---
EXAMINATION TYPE: FL guided pain mgmt statistic DATE OF EXAM: 06/04/2018 HISTORY: Pain Lt lumbar RF. 12 sec fluoro, 2 images scanned.
== END 2018-06-04 09:15 | disposition home or self-care (01) ==
LOC: ORPAIN 06:45
PROVIDERS: ATTEND Anesthesiology
DX: G89.29 Other chronic pain (principal); M47.26 Other spondylosis with radiculopathy, lumbar region; M51.16 Intervertebral disc disorders with radiculopathy, lumbar region; F17.200 Nicotine dependence, unspecified, uncomplicated; Z79.891 Long term (current) use of opiate analgesic; Z79.84 Long term (current) use of oral hypoglycemic drugs; Z79.890 Hormone replacement therapy; Z79.899 Other long term (current) drug therapy; Z79.82 Long term (current) use of aspirin; Z88.2 Allergy status to sulfonamides; Z88.8 Allergy status to other drugs, medicaments and biological substances; Z91.041 Radiographic dye allergy status
CPT/HCPCS: 64635; 64636 ×2; J2250; J3301; J3010; 99152

== ENCOUNTER 2018-06-19 06:48 | Day surgery (SDC) | payer BC, OTHER ==
[2018-06-17 15:51] VITALS: BMI 28.6
[2018-06-19 07:20] VITALS: TEMP 98.4
[2018-06-19] MEDS ORDERED: LACTATED RINGERS 1,000 ML IV ONE (07:20)
[2018-06-19] MEDS ORDERED: LIDOCAINE 1% 20 ML VIAL (10MG/ML) FOR IV START INTRADERMA ONE (07:21)
[2018-06-19 07:26] LABS: Glucose,Whole Blood 100 mg/dL (75-99)
--- NOTE | 2018-06-19 07:29 | P.PCN ---
Date of Procedure: 06/19/18 Description of Procedure: PREOPERATIVE DIAGNOSIS: Lumbar Facet Arthropathy. POSTOPERATIVE DIAGNOSIS: Lumbar Facet Arthropathy. PROCEDURES : Right Radiofrequency thermocoagulation, L3, L4, and L5 medial branch, with fluoroscopic guidance ANESTHESIA: IV sedation with versed and fentanyl and local infiltration with lidocaine 1% 10 ml EBL: Minimal PROCEDURE INDICATION: The patient with low back pain secondary to lumbar facet arthropathy who had more than 50% relief of pain with previous diagnostic lumbar medial branch block with local anesthetic. PROCEDURE DESCRIPTION / TECHNIQUE: The patient was seen and identified in the preoperative area. Risks, benefits, complications, including but not limited to risk of infection ,bleeding , allergic reactions to the medications and no complete pain relief , and alternatives were discussed with the patient, the patient agreed to proceed with the procedure and signed the consent. IV was started. Vital signs remained stable throughout the procedure. Patient was taken to the OR and time out was completed. The patient was placed in the prone position on the procedure table. The lumber area was prepped and draped in the usual sterile fashion. . Vital signs were closely monitored during the procedure .IV sedation was used during the procedure to decrease patient anxiety. Using AP and then oblique fluoroscopy, the eye of the Dmitri dog corresponding to the connection between the superior and transverse articular processes of right L3, L4, and L5 were identified, marked, and localized with 1% lidocaine. Subsequently, a 20 [id number] radiofrequency cannula with a 10-mm active tip was advanced guided by fluoroscopy to each of the eyes of the Dmitri dog at L3, L4, and L5. Each site then underwent sensory testing at 50 Hz and 0 to 1 volt and motor testing at 2.5 Hz and 0 to 3 volt with local stimulation, but no radicular symptoms down the legs. Thereafter the L3, L4, and L5 sites underwent radiofrequency thermocoagulation at 80 degrees celsius for 90 seconds after injecting 0.5 ml of PF lidocaine 1%. Then after the thermocoagulation was done , 1 ml of the block solution containing ropivacaine 0.5% was injected at the right L3 , L4 , and L5, levels after negative aspiration of CSF and blood and with no paresthesias. Cannulas were retracted. At the end of the procedure, the skin was cleansed and bandages were applied. COMPLICATIONS: No acute complications. DISPOSITION / PLANS: The patient was placed in a supine position and transferred to the recovery area in a stable condition for observation and was discharged from the recovery room after meeting discharge criteria. Home discharge instructions given to the patient by the staff. The patient was reexamined prior to discharge. Follow-up in the clinic in 2 months
[2018-06-19] MEDS ORDERED: IV FLUID CONTINUATION 1,000 ML IV ONE (08:02)
--- NOTE | 2018-06-19 08:14 | FL ---
EXAMINATION TYPE: FL guided pain mgmt statistic DATE OF EXAM: 06/19/2018 CLINICAL HISTORY: Low back pain. TECHNIQUE: Fluoroscopy. COMPARISON: None. FINDINGS: Fluoroscopic guidance was provided during pain relief procedure performed by Dr. Dominguez . A total of 6 seconds of fluoroscopic time was utilized during the procedure and two spot images are acquired. Images acquired shows needle localization in the lumbar spine off the midline at several levels. IMPRESSION: As Above.
[2018-06-19 08:16] VITALS: BP 126/76; PULSE 65; RESP 18
== END 2018-06-19 08:38 | disposition home or self-care (01) ==
LOC: ORPAIN 06:48
PROVIDERS: ATTEND Hospitalist
DX: M47.816 Spondylosis without myelopathy or radiculopathy, lumbar region (principal); Z88.2 Allergy status to sulfonamides; Z88.8 Allergy status to other drugs, medicaments and biological substances; Z91.041 Radiographic dye allergy status
CPT/HCPCS: 64635; 64636; J2250; J2001; J3010; 99152

== ENCOUNTER → 2018-12-15 | Outpatient (CLI) | payer BC, OTHER ==
[2018-12-15 12:26] VITALS: BP 121/77; PULSE 72
--- NOTE | 2018-12-16 14:18 | P.PAINPG ---
Subjective Progress Note Date: 12/15/18 This is a follow up visit for this 58 year old female with a chronic history of severe low back pain, she is diagnosed with lumbar spondylosis with lumbar facet arthropathy, lumbar disc herniation. She underwent radiofrequency ablation of the lumbar areaL L3, L4, L5 medial branches in May and June 2018 and was lost to follow-up. She returns today and reports that she obtained about 50% pain relief lasting for approximately 2 weeks. Today, she complains of bilateral low back pain, left greater than right, radiating to left buttock, left posterior and lateral thigh , with occasional electric-like currents in left leg and foot with numbness and tingling in the outer aspect of the left foot as well as bottom of foot. She does endorse subjective weaknessfeels tired and fatigued after walking and feels like her leg is going to give way. She has also been feeling off balance. Of note, she obtains left knee cortisone injections from Dr. Guevara, last one done 2 weeks ago. she is currently on [place] 7.5/325 when necessary, and she continued to have pain, but the pain medication "helps take the edge off"; she denies any side effect of the medication, and she is getting prescription refills from her primary care almond Dr. Krueger Review of systems is negative for chest pain, shortness of breath, new onset weakness, numbness/tingling, abdominal pain, malaise, fever, chills, homicidal or suicidal ideation, or bowel or bladder incontinence. He does endorse night sweats, and this is thought to be met possible. Physical exam: Vitals: Reviewed in EMR GENERAL: Well appearing, in no acute distress PSYCH: Mood and affect is appropriate. Awake, alert, and oriented SKIN: Skin color, texture, turgor normal, no rashes or lesions HEENT: Normocephalic, atraumatic. EOM intact CV: No pedal edema RESP: Respirations are unlabored, no audible wheezing GI: Abdomen non-distended MUSCULOSKELETAL: Bilateral lower extremity strength 5 out of 5, except left knee flexion which is 4 out of 5. No atrophy or tone abnormalities are noted. Lumbar spine: Straight leg raising in the sitting position is negative for radicular pain. Tenderness to palpation over the lumbar spine and paraspinous muscles bilaterally. Positive for pain with facet loading and back extension/rotation bilaterally. Limited lumbar extension Buttocks: Significant tenderness to palpation over the left PSIS, Yusuf positive on left, sacral thrust positive for pain on left side, gainslens test positive on left Extremities: Peripheral joint ROM is full and pain free without obvious instability or laxity in all four extremities. No edema or skin discolorations noted. Gait: Gait is slow, antalgic NEUR: Bilateral lower extremity coordination and muscle stretch reflexes are physiologic and symmetric. Negative clonus bilaterally. No loss of sensation is noted. Results Comments: MRI of the lumbar spine done on 02/05/2018 shows degenerative disc disease at L4-5 and L5-S1 with grade 1 anterolisthesis of L4 on L5 and L5 on S1, severe facet joint arthropathy and moderate bilateral foraminal encroachment at above- mentioned levels stop Assessment and Plan Left sacroiliitis Lumbar spondylosis Lumbar radiculopathy Chronic use of high-risk medicationopioids Plan: 1. Procedures: We'll schedule the patient for left sided SI joint injection as I believe most of her pain is originating from her SI joint. In the future, she may benefit from left-sided L4-5 and L5-S1 transforaminal epidural steroid injections. 2. Counselin minutes was spent on counseling regarding smoking cessation as it relates general health and particularly chronic pain. 3. We discussed the importance of exercise. In the future, the patient may benefit from a formal physical therapy evaluation and treatment. Patient is amenable to this plan. 4. Medication management: No changes were made today, patient can continue [place] and ibuprofen as needed stop Follow-up: For above-mentioned procedure PQRS Measure Charge Sheet Measure #130: Documentation of Current Meds in Medical Chart: Patient's medications documented in chart Measure #226: Tobacco Use: Screen & Cessation Intervention: Pt screened for tobacco use AND intervention given Measure #111: Pneumonia Vaccination: Pneumococcal vaccine NOT administered or previously given Measure #47: Advance Care Plan: Advance care planning discussed & documented, pt chose/unable to give Measure #412: Opioid Treatment Agreement: No documentation of signed opioid treatment agreement Measure #317: Preventitive Care & Scrn High Bld Press & F/U: Normal blood pressure, f/u not required Measure #128: Body Mass Index (BMI) Screening & Follow-up: BMI documented within normal parameters Measure #131: Pain Assessment & Follow-up: Pain positive & plan documented, Follow-up scheduled Measure #431: Unhealthy Alcohol Use Preventative Care & Scrn: Patient not identified as an unhealthy alcohol user PQRS Narrative: Smoking Status Current every day smoker Pain Intensity [Lower Back] 8 Scale Used Numeric (1 - 10) Hx Alcohol Use (MH) No Home Medications: Ambulatory Orders Levothyroxine Sodium [Synthroid] 75 mcg PO QAM 10/14/15 Metoprolol Tartrate [Lopressor] 25 mg PO BID 10/14/15 metFORMIN HCL [Glucophage] 500 mg PO BID 10/14/15 Diazepam [Valium] 5 mg PO TID PRN 01/18/17 Rosuvastatin Calcium [Crestor] 20 mg PO HS 01/18/17 Albuterol Inhaler [Ventolin Hfa Inhaler] 1 - 2 puff INHALATION RT-Q6H PRN 06/12/17 Loratadine [Claritin] 10 mg PO DAILY PRN 06/18/17 Aspirin 325 mg PO QAM 03/25/18 rOPINIRole HCL [Requip] 0.5 mg PO HS 03/25/18 HYDROcodone/APAP 7.5-325MG [[place] 7.5] 1 each PO Q8H PRN 04/04/18 amLODIPine [Norvasc] 5 mg PO QAM 04/22/18 Fluticasone Nasal [place] [Flonase Nasal [place]] 2 spr EA NOSTRIL DAILY 12/11/18 Ibuprofen [Motrin] 800 mg PO TID PRN 12/11/18 Montelukast [Singulair] 10 mg PO DAILY 12/11/18 Sertraline [Zoloft] 100 mg PO DAILY 12/11/18 Venlafaxine HCl [Effexor XR] 75 mg PO DAILY 12/11/18 Controlled Substance Measures - Controlled Substance Measures Is patient prescribed a controlled substance at discharge?: No
== END | disposition home or self-care (01) ==
LOC: PNWHC3 11:52
PROVIDERS: ATTEND Anesthesiology
DX: M47.26 Other spondylosis with radiculopathy, lumbar region (principal); M46.1 Sacroiliitis, not elsewhere classified; F17.200 Nicotine dependence, unspecified, uncomplicated; Z79.84 Long term (current) use of oral hypoglycemic drugs; Z79.82 Long term (current) use of aspirin; Z79.891 Long term (current) use of opiate analgesic; Z79.51 Long term (current) use of inhaled steroids; Z79.1 Long term (current) use of non-steroidal anti-inflammatories (NSAID); Z79.899 Other long term (current) drug therapy
CPT/HCPCS: 99211

== ENCOUNTER 2018-12-23 09:25 | Day surgery (SDC) | payer BC, OTHER ==
[2018-12-19 13:21] VITALS: BMI 26.0
[~2018-12-23 09:25] MED LIST changes: +LACTATED RINGERS 1,000 ML IV SCH; -SODIUM CHLORIDE 0.9% 500 ML 500 ML IV SCH
[2018-12-23 10:07] VITALS: TEMP 97.8
[2018-12-23] MEDS ORDERED: LACTATED RINGERS 1,000 ML IV ONE (10:07)
[2018-12-23] MEDS ORDERED: LIDOCAINE 1% 20 ML VIAL (10MG/ML) FOR IV START INTRADERMA ONE (10:09)
[2018-12-23 10:13] LABS: Glucose,Whole Blood 105 mg/dL (75-99)
--- NOTE | 2018-12-23 11:03 | P.PCN ---
Date of Procedure: 12/23/18 Procedure(s) Performed: Procedure: Left sacroiliac joints steroid injection under fluoroscopy guidance Preoperative diagnosis: SI joint dysfunction Postoperative diagnosis=same Complication = none Condition= stable Anesthesia= moderate sedation with 2 mg Versed and 50 mcg fentanyl and local infiltration with lidocaine 1% 5 mL Indication for the procedure: patient complaining of low back pain , examination was positive for severe tenderness over the sacroiliac joints bilaterally and patient diagnosed with sacroiliitis, for this reason s/he was good candidate for sacroiliac joint steroid injection. Description of the procedure= procedure risk and benefits discussed with the patient, including but not limited, risk of infection and bleeding, and ALLERGIC reaction to the medication and not complete pain relief and patient agreed with the preceding patient taken to the operating room, placed in prone position or standard monitors applied to the patient then after induction of anesthesia back prepped with chlorhexidine Then under strict sterile technique, first I did the right sacroiliac joint the which was identified under fluoroscopy guidance been local infiltration of the skin and subq interstitial with lidocaine 1% then 22-gauge [place] Needle advanced slowly under fluoroscopy and placed in the left sacroiliac joint needle placement confirmed with AP and oblique and lateral view and after appropriate needle placement confirmed. Contrasted was NOT used given her allergy. After negative aspiration, or heme the Ropivicaine 0.5% 2 mL and 40 mg of Kenalog mixed together and injected in the right sacroiliac joint after negative aspiration patient tolerated the procedure well without any complication. The patient tolerated the procedure well that any complications and will follow up for potential repeat procedure if she has good relief with this one.
[2018-12-23] MEDS ORDERED: IV FLUID CONTINUATION 1,000 ML IV ONE (11:12)
[2018-12-23 11:15] VITALS: RESP 16
[2018-12-23 11:30] VITALS: BP 118/71; PULSE 68
--- NOTE | 2018-12-23 12:54 | FL ---
EXAMINATION TYPE: FL guided pain mgmt statistic DATE OF EXAM: 12/23/2018 CLINICAL HISTORY: Left sacral iliac joint injection. Back pain. Fluoroscopic documentation. TECHNIQUE: Fluoroscopy. COMPARISON: None. FINDINGS: Fluoroscopic guidance was provided during procedure performed by Dr. Edmondson. A total of 4 seconds of fluoroscopic time was utilized during the procedure and 2 spot images was acquired durin g a left sacroiliac joint injection. IMPRESSION: As Above.
== END 2018-12-23 11:42 | disposition home or self-care (01) ==
LOC: ORPAIN 09:25
PROVIDERS: ATTEND Student in an Organized Health Care Education/Training Program
DX: G89.29 Other chronic pain (principal); M46.1 Sacroiliitis, not elsewhere classified; M53.3 Sacrococcygeal disorders, not elsewhere classified; M51.16 Intervertebral disc disorders with radiculopathy, lumbar region; M47.26 Other spondylosis with radiculopathy, lumbar region; Z79.891 Long term (current) use of opiate analgesic; Z79.890 Hormone replacement therapy; Z79.84 Long term (current) use of oral hypoglycemic drugs; Z79.82 Long term (current) use of aspirin; Z79.899 Other long term (current) drug therapy; Z90.710 Acquired absence of both cervix and uterus
CPT/HCPCS: 27096; J2250; J3301; J3010

== ENCOUNTER 2019-01-06 08:25 | Day surgery (SDC) | payer BC, OTHER ==
[2019-01-01 15:02] VITALS: BMI 26.1
[2019-01-06 08:45] VITALS: TEMP 96.3
[2019-01-06 08:52] LABS: Glucose,Whole Blood 101 mg/dL (75-99)
[2019-01-06] MEDS ORDERED: LIDOCAINE 1% 20 ML VIAL (10MG/ML) FOR IV START INTRADERMA ONE (08:52)
--- NOTE | 2019-01-06 09:35 | P.PCN ---
Date of Procedure: 01/06/19 Procedure(s) Performed: Procedure: Left sacroiliac joints steroid injection under fluoroscopy guidance (fluoroscopy images available at radiology Department ) Preoperative diagnosis: 1- SI joint dysfunction. 2-sacroiliitis . 3-lumbar spondylosis with lumbar facet arthropathy Postoperative diagnosis=same as preop Diagnostic Complication = none Condition= stable Anesthesia= moderate sedation with 2 mg Versed 2 mg ,and 50 mcg fentanyl and local infiltration with lidocaine 1% 3 mL Indication for the procedure: patient complaining of low back pain , examination was positive for severe tenderness over the sacroiliac joints bilaterally and patient diagnosed with sacroiliitis, for this reason s/he was good candidate for sacroiliac joint steroid injection. Description of the procedure= procedure risk and benefits discussed with the patient, including but not limited, risk of infection and bleeding, and ALLERGIC reaction to the medication and not complete pain relief and patient agreed with the preceding patient taken to the operating room, placed in prone position or standard monitors applied to the patient then after induction of anesthesia back prepped with chlorhexidine Then under strict sterile technique, first I did the right sacroiliac joint the which was identified under fluoroscopy guidance been local infiltration of the skin and subq interstitial with lidocaine 1% then 22-gauge [place] Needle advanced slowly under fluoroscopy and placed in the left sacroiliac joint needle placement confirmed with AP and oblique and lateral view and after appropriate needle placement confirmed. Contrasted was NOT used given her allergy. After negative aspiration, or heme the Ropivicaine 0.5% 3 mL and 40 mg of Depo-Medrol mixed together and injected in the right sacroiliac joint after negative aspiration patient tolerated the procedure well without any complication. The patient tolerated the procedure well that any complications and will follow up for potential repeat procedure if she has good relief with this one.
[2019-01-06] MEDS ORDERED: IV FLUID CONTINUATION 450 ML IV ONE (09:49)
[2019-01-06 10:07] VITALS: RESP 18
[2019-01-06 10:28] VITALS: BP 108/77; PULSE 77
--- NOTE | 2019-01-06 11:08 | FL ---
EXAMINATION TYPE: FL guided pain mgmt statistic DATE OF EXAM: 01/06/2019 CLINICAL HISTORY: Low back pain. TECHNIQUE: Fluoroscopy. COMPARISON: None. FINDINGS: Fluoroscopic guidance was provided during pain relief procedure performed by Dr. Sorensen . A total of 4 seconds of fluoroscopic time was utilized during the procedure and two spot images ar e acquired. Images acquired shows needle localization left sacroiliac joint. IMPRESSION: As Above.
== END 2019-01-06 10:19 | disposition home or self-care (01) ==
LOC: ORPAIN 08:25
PROVIDERS: ATTEND Specialist
DX: M46.1 Sacroiliitis, not elsewhere classified (principal); M53.3 Sacrococcygeal disorders, not elsewhere classified; M47.816 Spondylosis without myelopathy or radiculopathy, lumbar region; M51.36 Other intervertebral disc degeneration, lumbar region; F41.9 Anxiety disorder, unspecified; F17.200 Nicotine dependence, unspecified, uncomplicated; Z90.710 Acquired absence of both cervix and uterus; Z91.041 Radiographic dye allergy status
CPT/HCPCS: 27096; J2250; J1030; J3010

== ENCOUNTER → 2019-01-21 | Outpatient (CLI) | payer BC, OTHER ==
[2019-01-21 12:36] VITALS: BP 141/71; PULSE 68; RESP 18
--- NOTE | 2019-01-21 16:14 | P.PAINPG ---
Subjective Progress Note Date: 01/21/19 This is a follow up visit for this 58 year old female with a chronic history of severe low back pain, she is diagnosed with lumbar spondylosis with lumbar facet arthropathy, lumbar disc herniation. She last underwent an SI joint injection, and her buttock pain is greatly improved. He returns for follow-up today for pain past her knee that was the top of her foot, at the last visit we discussed pursuing a left-sided transforaminal injection, which she would like to pursue. she is currently on [place] 7.5/325 when necessary, and she continued to have pain, but the pain medication "helps take the edge off"; she denies any side effect of the medication, and she is getting prescription refills from her primary care [facility] Dr. Krueger. She is very happy with the results for left SI joint injection. Objective - Vital Signs Vital signs: Vital Signs Temp Pulse 68 01/21/19 12:32 Resp 18 01/21/19 12:32 BP 141/71 01/21/19 12:32 Pulse Ox 97 01/21/19 12:32 - Exam Vital Signs: Reviewed in EMR GENERAL: Well appearing, in no acute distress, PSYCH: Mood and affect is appropriate. Awake, alert, and oriented SKIN: Skin color, texture, turgor normal, no rashes or lesions HEENT: Normocephalic, atraumatic. EOM intact CV: No pedal edema RESP: Respirations are unlabored, no audible wheezing GI: Abdomen non-distended MUSCULOSKELETAL: Bilateral upper and lower extremity strength is normal and symmetric. No atrophy or tone abnormalities are noted. Lumbar spine: Some pain with facet loading, straight leg test was negative Buttocks: PSIS is tender Extremities: Peripheral joint ROM is full and pain free without obvious instability or laxity in all four extremities. No edema or skin discolorations noted. Gait: Gait is anantalgic NEUR: No loss of sensation is noted. Cranial nerves are grossly intact. Assessment and Plan Assessment: Assessment: 1. Lumbar radicular pain without myelopathy 2. Lumbar spondylosis 3. SI joint dysfunction 4. Chronic opiate use Plan: 1. Explanation: Explained to her and the nature of the procedure and what we will target 2. Opioid agreement: None 3. Counseling: The patient was counseled extensively on BODY MASS INDEX, EXERCISE. Specifically, the patient was instructed regarding the importance of weight control, and exercise in the context of both chronic pain and overall health. 4. Procedures: Left-sided transforaminal injection at L4-L5, L5-S1 5. Consultations: None 6. Investigations: By MRI reviewed 7. Medications: Encouraged patient to have discussions with primary care physician 8. Disposition: For her procedure PQRS Measure Charge Sheet Measure #226: Tobacco Use: Screen & Cessation Intervention: Pt screened for tobacco use AND intervention given Measure #111: Pneumonia Vaccination: Pneumococcal vaccine administered or previously received Measure #47: Advance Care Plan: Advance care planning discussed & documented, pt chose/unable to give Measure #412: Opioid Treatment Agreement: No documentation of signed opioid treatment agreement Measure #408: Opioid Therapy Follow-up Evaluation: Patient had NO f/u eval minimum every 3 months during opioid therapy Measure #131: Pain Assessment & Follow-up: Pain positive & plan documented, Follow-up scheduled PQRS Narrative: Smoking Status Current every day smoker Blood Pressure 141/71 Pain Intensity [Back] 5 Pain Intensity [Left Lower Leg 5 ] Scale Used Numeric (1 - 10) Hx Alcohol Use (MH) No Home Medications: Ambulatory Orders Levothyroxine Sodium [Synthroid] 75 mcg PO QAM 10/14/15 Metoprolol Tartrate [Lopressor] 25 mg PO BID 10/14/15 metFORMIN HCL [Glucophage] 500 mg PO BID 10/14/15 Diazepam [Valium] 5 mg PO TID PRN 01/18/17 Rosuvastatin Calcium [Crestor] 20 mg PO HS 01/18/17 Albuterol Inhaler [Ventolin Hfa Inhaler] 1 - 2 puff INHALATION RT-Q6H PRN 06/12/17 Loratadine [Claritin] 10 mg PO DAILY PRN 06/18/17 Aspirin 325 mg PO QAM 03/25/18 rOPINIRole HCL [Requip] 0.5 mg PO HS 03/25/18 HYDROcodone/APAP 7.5-325MG [[place] 7.5] 1 each PO Q8H PRN 04/04/18 amLODIPine [Norvasc] 5 mg PO QAM 04/22/18 Fluticasone Nasal [place] [Flonase Nasal [place]] 2 spr EA NOSTRIL DAILY 12/11/18 Ibuprofen [Motrin] 800 mg PO TID PRN 12/11/18 Montelukast [Singulair] 10 mg PO DAILY 12/11/18 Sertraline [Zoloft] 100 mg PO DAILY 12/11/18 Venlafaxine HCl [Effexor XR] 75 mg PO DAILY 12/11/18 Controlled Substance Measures - Controlled Substance Measures Is patient prescribed a controlled substance at discharge?: No
== END | disposition home or self-care (01) ==
LOC: PNWHC3 11:49
PROVIDERS: ATTEND Student in an Organized Health Care Education/Training Program
DX: M47.26 Other spondylosis with radiculopathy, lumbar region (principal); M53.3 Sacrococcygeal disorders, not elsewhere classified; F11.20 Opioid dependence, uncomplicated; F17.200 Nicotine dependence, unspecified, uncomplicated; Z79.82 Long term (current) use of aspirin; Z79.1 Long term (current) use of non-steroidal anti-inflammatories (NSAID); Z79.84 Long term (current) use of oral hypoglycemic drugs; Z79.890 Hormone replacement therapy; Z79.891 Long term (current) use of opiate analgesic; Z79.899 Other long term (current) drug therapy
CPT/HCPCS: 99211

== ENCOUNTER 2019-02-03 08:52 | Day surgery (SDC) | payer BC, OTHER ==
[2019-02-03 09:46] VITALS: RESP 16; TEMP 96.6
[2019-02-03] MEDS ORDERED: LIDOCAINE 1% 20 ML VIAL (10MG/ML) FOR IV START INTRADERMA ONE (10:00)
[2019-02-03 10:14] LABS: Glucose,Whole Blood 93 mg/dL (75-99)
--- NOTE | 2019-02-03 10:28 | P.PCN ---
Date of Procedure: 02/03/19 Procedure(s) Performed: DESCRIPTION OF PROCEDURE(S): PREOPERATIVE DIAGNOSIS: Lumbar radiculopar Pain POSTOPERATIVE DIAGNOSIS: Lumbar radiculopar Pain PROCEDURE 1. Transforaminal epidural steroid injection under fluoroscopic guidance left L5-S1 2. Lumbar epidurogram ANESTHESIA: Local with 1% lidocaine 3 ml ; moderate sedation with Versed and fentanyl PROCEDURE INDICATION: The patient with low back pain and radiculopathy symptoms unresponsive to conservative treatment. PROCEDURE DESCRIPTION / TECHNIQUE: The patient was seen and identified in the preoperative area. Risks, benefits, complications, and alternatives were discussed with the patient. The patient agreed to proceed with the procedure and signed the consent. IV was started, and vital signs were stable. Patient was taken to the OR and time out was completed. The patient was placed in the prone position on procedure table and a pillow was placed under the abdomen to reduce lumbar lordosis. The lumbosacral area was prepped and draped in the usual sterile fashion. Vital signs were closely monitored during the procedure. Conscious sedation was used. Using oblique fluoroscopy, the chin of the ``Dmitri dog and the skin and deeper tissues just below was localized with 1% lidocaine. Subsequently, a 22- gauge 3.5-inch spinal needle was advanced under a tunneled view fluoroscopic guidance just underneath the chin of the ``Dmitri dog . Under lateral fluoroscopy, the needle was then advanced to the posterior border of the foramen. After negative aspiration of CSF and blood and with no paresthesias, the injectate solution was then delivered. The needle was withdrawn intact. At the end of the procedure, skin was cleansed, and bandages were applied. Images were saved to the chart. COMPLICATIONS: None COMMENTS: The patient has a contrast ALLERGY, therefore contrast was not used. One performing the injection, she states that she did feel like it covered her leg pain completely. DISPOSITION / PLANS: The patient was placed in a supine position and transferred to the recovery area in a stable condition for observation. There was no evidence of lower extremity motor or sensory deficit after the procedure. Patient was discharged from the recovery room after meeting discharge criteria. Home discharge instructions were given to the patient by the staff. She can follow up for repeat procedure.
[2019-02-03] MEDS ORDERED: IV FLUID CONTINUATION 1,000 ML IV ONE (10:31)
[2019-02-03 10:52] VITALS: BP 122/76; PULSE 66
--- NOTE | 2019-02-03 11:02 | FL ---
EXAMINATION TYPE: FL guided pain mgmt statistic DATE OF EXAM: 02/03/2019 CLINICAL HISTORY: Low back pain. TECHNIQUE: Fluoroscopy. COMPARISON: None. FINDINGS: Fluoroscopic guidance was provided during pain relief procedure performed by Dr. Edmondson . A total of 10 seconds of fluoroscopic time was utilized during the procedure and 3 spot images are acquired. Images acquired shows needle localization of the lumbosacral spine. IMPRESSION: As Above.
== END 2019-02-03 11:02 | disposition home or self-care (01) ==
LOC: ORPAIN 08:52
PROVIDERS: ATTEND Student in an Organized Health Care Education/Training Program
DX: M54.16 Radiculopathy, lumbar region (principal); E11.9 Type 2 diabetes mellitus without complications; Z91.041 Radiographic dye allergy status; Z88.2 Allergy status to sulfonamides; Z88.8 Allergy status to other drugs, medicaments and biological substances; Z88.7 Allergy status to serum and vaccine; Z90.710 Acquired absence of both cervix and uterus
CPT/HCPCS: 64483; J2250; J1030; J3010

== ENCOUNTER 2019-03-03 06:02 | Day surgery (SDC) | payer BC, OTHER ==
[2019-02-27 16:20] VITALS: BMI 25.9
[2019-03-03 06:39] LABS: Glucose,Whole Blood 101 mg/dL (75-99)
[2019-03-03 06:42] VITALS: TEMP 97.9
[2019-03-03] MEDS ORDERED: LIDOCAINE 1% 20 ML VIAL (10MG/ML) FOR IV START INTRADERMA ONE (06:44)
[2019-03-03] MEDS ORDERED: IV FLUID CONTINUATION 1,000 ML IV ONE (07:21)
--- NOTE | 2019-03-03 07:26 | P.PCN ---
Date of Procedure: 03/03/19 Procedure(s) Performed: PREOPERATIVE DIAGNOSIS:1- Lumbar radiculopathy. 2-lumbar spondylosis with lumbar facet arthropathy. 3-sacroiliitis POSTOPERATIVE DIAGNOSIS: same as preoperative diagnoses. PROCEDURE 1. Transforaminal epidural steroid injection under fluoroscopic guidance at left L4-5 and L5-S1 level. (Fluoroscopy images stored on file in the radiology Department ) ANESTHESIA: Local with 1% lidocaine 3 ml , moderate sedation with intravenous Versed 2 mg and fentanyle 100 micrograms EBL: Minimal PROCEDURE INDICATION: The patient with low back pain and radiculopathy symptoms unresponsive to conservative treatment. PROCEDURE DESCRIPTION / TECHNIQUE: The patient was seen and identified in the preoperative area. Risks, benefits, complications, and alternatives were discussed with the patient. The patient agreed to proceed with the procedure and signed the consent. IV was started, and vital signs were stable. Patient was taken to the OR and time out was completed. The patient was placed in the prone position on procedure table and a pillow was placed under the abdomen to reduce lumbar lordosis. The lumbosacral area was prepped and draped in the usual sterile fashion. Critical pause was taken. Vital signs were closely monitored during the procedure. Conscious sedation was used during the procedure to decrease patient s anxiety. Using oblique fluoroscopy, the chin of the ``Dmitri dog at left L4-5 level was identified, and the skin and deeper tissues just below was localized with 1% lidocaine. Subsequently, a 22-gauge 3.5-inch spinal needle was advanced under a tunneled view fluoroscopic guidance just underneath the chin of the ``Dmitri dog at the left L4-5 . Under lateral fluoroscopy, the needle was then advanced to the posterior border of the L4-5 interforaminal space. After negative aspiration of CSF and blood and with no paresthesias, (Omnipaque was not injected because patient had ALLERGY to IVP dye ) Subsequently, 3 mL of block solution containing 20 mg Depo-medrol and 2 mL of PF normal saline was injected. Needle was removed and the same procedure was repeated at the left L5- S1 . At the end of the procedure, skin was cleansed, and bandages were applied. COMPLICATIONS:none DISPOSITION / PLANS: The patient was placed in a supine position and transferred to the recovery area in a stable condition for observation. There was no evidence of lower extremity motor or sensory deficit after the procedure. Patient was discharged from the recovery room after meeting discharge criteria. Home discharge instructions were given to the patient by the staff. The patient was reexamined prior to discharge.
[2019-03-03 07:29] VITALS: RESP 18
[2019-03-03 07:47] VITALS: BP 110/67; PULSE 68
--- NOTE | 2019-03-03 08:45 | FL ---
EXAMINATION TYPE: FL guided pain mgmt statistic DATE OF EXAM: 03/03/2019 CLINICAL HISTORY: Low back pain. TECHNIQUE: Fluoroscopy. COMPARISON: None. FINDINGS: Fluoroscopic guidance was provided during pain relief procedure performed by Dr. Sorensen . A total of 25 seconds of fluoroscopic time was utilized during the procedure and 3 spot images are acquired. Images acquired shows needle localization at multiple levels in the lumbar spine. IMPRESSION: As Above.
== END 2019-03-03 07:56 | disposition home or self-care (01) ==
LOC: ORPAIN 06:02
PROVIDERS: ATTEND Specialist
DX: M47.26 Other spondylosis with radiculopathy, lumbar region (principal); M46.1 Sacroiliitis, not elsewhere classified
CPT/HCPCS: 64483; 64484; J2250; J1030; J3010; 99152

== ENCOUNTER → 2019-03-25 | Outpatient (CLI) | payer BC, OTHER ==
[2019-03-25 15:17] VITALS: BP 111/70; PULSE 82; RESP 18
--- NOTE | 2019-03-25 21:19 | P.PAINPG ---
Subjective Progress Note Date: 03/25/19 This is follow up visit ,for this 58 years old female with a chronic history of severe low back pain, she is diagnosed with lumbar spondylosis with lumbar facet arthropathy, lumbar disc herniation, status post diagnostic medial branch block lumbar area, and we have done transforaminal epidural steroid injection x2 , and sacroiliac joint steroid injection, she gets only short-term benefit after interventional pain management, currently she is complaining of severe pain, the pain is constant and localized in the low back area, and radiated to the left lower extremity, she denies any fever or numbness but she denies any change in the bowel movement or urination she is currently on [place] 7.5/325 when necessary, and she continued to have pain, but the pain medication helping her to be able to do activities of daily livings and able to function, she reports intensity of the pain is 6/10 and increases with activity to 8 or 9/10, she denies any side effect of the medication, and she is getting prescription refills from her primary care Objective - Vital Signs Vital signs: Vital Signs Temp Pulse 82 03/25/19 13:41 Resp 18 03/25/19 13:41 BP 111/70 03/25/19 13:41 Pulse Ox 95 03/25/19 13:41 - Exam Physical Examinations : -Constitutiona : Cooperative , not in acute distress . -HEENT : nech : supple , no Lymphadenopathy , normal thyroid size . : eyes : no ptosis , no icterus, no photophobia . : ENT : normal of hearing , normal o ropharynx , no Thrush . - Respiratory : Chest clear to auscultations Bilaterally , no wheezing , no Rhonchi . - Cardiovascula : regular rate and rhythem , S1 , S2 , no S3 , no S4. - Gastrointestina : abdomen soft no tenderness , bowel sounds , no organomegally . - Genitourinary : Defferred . - neurologic : Cranial nerve II to XII intact , no focal neurological deffecit . -psychatric : alert , oriented X 3 , appropriate affect , intact judgment and insight . -Lymphatic : no Lymphadenopathy . - musculoskeltal : Lumber spine moter stegnth lower extremities ,thigh and legs 5/5 Right side , 5/5 Left side deep tendon reflexes : normal Knee Jerk , normal ankle Jerk lumber facet Loading Test =positive Right , positive Left Range of motion of the lumbar spine Flexion 30 degrees, extension 10 degrees strait leg raising test = positive at 30 degree Fabere test= positive Right , and positive LT . Sever tenderness over the Sacroiliac joint on the Right , and Left sides Gaenslen test= positive right ,and positive left . Seated flexion test= positive right ,and positive Left . MRI of the lumbar spine done in January 2018 there is disc herniation and lumbar spondylosis Assessment and Plan Plan: Assessment and plan= chronic severe low back pain secondary to lumbar degenerative disc disease and lumbar spondylosis with lumbar facet arthropathy She continued to have severe low back pain after interventional pain management, for this reason patient will be referred to a spine surgeon for evaluation for possible surgical interventions, and she will follow up with the pain clinic., She'll continue to use [place] 7.5/325 as prescribed by her primary care Time with Patient: Less than 30 PQRS Measure Charge Sheet Measure #130: Documentation of Current Meds in Medical Chart: Patient's medications documented in chart Measure #226: Tobacco Use: Screen & Cessation Intervention: Pt screened for tobacco use AND intervention given Measure #111: Pneumonia Vaccination: Pneumococcal vaccine administered or previously received Measure #47: Advance Care Plan: Advance care planning discussed & documented, pt chose/unable to give Measure #412: Opioid Treatment Agreement: No documentation of signed opioid treatment agreement Measure #408: Opioid Therapy Follow-up Evaluation: Patient had NO f/u eval minimum every 3 months during opioid therapy Measure #317: Preventitive Care & Scrn High Bld Press & F/U: Normal blood pressure, f/u not required Measure #128: Body Mass Index (BMI) Screening & Follow-up: BMI documented ABOVE normal parameters - f/u documented Measure #131: Pain Assessment & Follow-up: Pain positive & plan documented, Follow-up scheduled Measure #431: Unhealthy Alcohol Use Preventative Care & Scrn: Patient not identified as an unhealthy alcohol user PQRS Narrative: Smoking Status Current every day smoker Blood Pressure 111/70 Pain Intensity [Back] 6 Scale Used Numeric (1 - 10) Hx Alcohol Use (MH) No Home Medications: Ambulatory Orders Levothyroxine Sodium [Synthroid] 75 mcg PO QAM 10/14/15 Metoprolol Tartrate [Lopressor] 25 mg PO BID 10/14/15 metFORMIN HCL [Glucophage] 500 mg PO BID 10/14/15 Diazepam [Valium] 5 mg PO TID PRN 01/18/17 Rosuvastatin Calcium [Crestor] 20 mg PO HS 01/18/17 Albuterol Inhaler [Ventolin Hfa Inhaler] 1 - 2 puff INHALATION RT-Q6H PRN 06/12/17 Loratadine [Claritin] 10 mg PO DAILY 06/18/17 Aspirin 325 mg PO QAM 03/25/18 rOPINIRole HCL [Requip] 0.5 mg PO HS 03/25/18 HYDROcodone/APAP 7.5-325MG [[place] 7.5] 1 each PO Q8H PRN 04/04/18 amLODIPine [Norvasc] 5 mg PO QAM 04/22/18 Fluticasone Nasal [place] [Flonase Nasal [place]] 2 spr EA NOSTRIL DAILY 12/11/18 Ibuprofen [Motrin] 800 mg PO TID PRN 12/11/18 Montelukast [Singulair] 10 mg PO DAILY 12/11/18 Sertraline [Zoloft] 100 mg PO DAILY 12/11/18 Venlafaxine HCl [Effexor XR] 75 mg PO DAILY 12/11/18 Controlled Substance Measures - Controlled Substance Measures Is patient prescribed a controlled substance at discharge?: No
== END | disposition home or self-care (01) ==
LOC: PNWHC3 13:32
PROVIDERS: ATTEND Specialist
DX: M51.36 Other intervertebral disc degeneration, lumbar region (principal); M47.816 Spondylosis without myelopathy or radiculopathy, lumbar region; M46.96 Unspecified inflammatory spondylopathy, lumbar region; G89.29 Other chronic pain; F17.200 Nicotine dependence, unspecified, uncomplicated; Z79.891 Long term (current) use of opiate analgesic; Z79.899 Other long term (current) drug therapy; Z79.84 Long term (current) use of oral hypoglycemic drugs; Z79.82 Long term (current) use of aspirin; Z79.52 Long term (current) use of systemic steroids
CPT/HCPCS: 99211

== ENCOUNTER → 2019-04-07 | Outpatient (CLI) | payer BC, OTHER ==
--- NOTE | 2019-04-07 18:40 | MR ---
EXAMINATION TYPE: MR lumbar spine wo con DATE OF EXAM: 04/07/2019 COMPARISON: 02/05/2019 HISTORY: LBP, LLE radic x 2 years TECHNIQUE: T1 and T2 axial and sagittal images of the lumbar spine are submitted. FINDINGS: There is no abnormal signal seen within the visualized spinal cord or paraspinal soft tissu es. Stable heterogeneous marrow signal alteration. Most likely the basis of marrow reconversion. Simp le appearing left renal cyst noted. Aorta of normal caliber. At L1-2 there is no evidence of degenerative disc disease, disc herniation, canal stenosis, or forami nal encroachment. At L2-3 there is no evidence of degenerative disc disease, disc herniation, canal stenosis, or forami nal encroachment. At L3-4 there is no evidence of degenerative disc disease, disc herniation, canal stenosis, or forami nal encroachment. At L4-5 there is degenerative disc disease with severe advanced facet arthropathy, ligamentum flavum hypertrophy and diffuse disc bulging resulting in moderate canal stenosis and moderate to severe bila teral foraminal encroachment. Stable grade 1 anterolisthesis. A marked deformity of the facet joints advanced arthropathy lamina or pars defect not excluded partic ularly on the left. At L5-S1 there is degenerative disc disease with advanced facet arthropathy. There is moderate left f oraminal encroachment and severe right foraminal encroachment. Broad-based disc herniation greater pa racentrally and laterally to the right. Portion of the disc herniation extends superiorly and extends posterior to the L5 vertebral segment compatible with distributed disc herniation. Finding is simila r to the prior exam. Could not exclude a lamina defect on the left. IMPRESSION: 1. Broad-based disc herniation L5-S1 with extrusion of disc material superiorly. Disc material extend s posterior to the L5 vertebral segment and there is significant compression of thecal sac. Marked ad vanced facet arthropathy helps contribute to canal stenosis severe right-sided foraminal encroachment and moderate to severe left foraminal encroachment. 2. Stable grade 1 anterolisthesis L4 and L5 secondary to advanced facet arthropathy. Disc bulging wit h hypertrophic changes contribute to moderate canal stenosis and moderate to severe bilateral foramin al encroachment. Finding is similar to the prior exam.
== END | disposition home or self-care (01) ==
LOC: RADMRIMAIN 15:41
PROVIDERS: ATTEND Specialist
DX: M48.061 Spinal stenosis, lumbar region without neurogenic claudication (principal); M51.27 Other intervertebral disc displacement, lumbosacral region; M43.16 Spondylolisthesis, lumbar region; M46.96 Unspecified inflammatory spondylopathy, lumbar region
CPT/HCPCS: 72148

== ENCOUNTER → 2019-05-07 | Outpatient (CLI) | payer BC, OTHER ==
--- NOTE | 2019-05-07 13:26 | XR ---
EXAMINATION TYPE: XR chest 2V DATE OF EXAM: 05/07/2019 COMPARISON: 12/14/2011 HISTORY: 50-year-old female with cough. Preoperative exam. TECHNIQUE: Frontal and lateral views FINDINGS: Heart normal size. Aorta and pulmonary vasculature within normal limits. Some hazy lower lung densiti es related to overlying soft tissue. No consolidation or pleural effusion. IMPRESSION: Chronic changes without acute cardiopulmonary process.
== END | disposition home or self-care (01) ==
LOC: RADXRMAIN 10:30
PROVIDERS: ATTEND Family Medicine
DX: R05 Cough (principal)
CPT/HCPCS: 71046

== ENCOUNTER → 2019-09-18 | Outpatient (CLI) | payer BC, OTHER ==
--- NOTE | 2019-09-18 15:51 | CT ---
EXAMINATION TYPE: CT lumbar spine wo con DATE OF EXAM: 09/18/2019 COMPARISON: MRI 04/07/2019 HISTORY: 59-year-old female M43.16, Spondylolisthesis, lumbar region. TECHNIQUE: Contiguous axial scanning of the lumbar spine without IV contrast. Coronal and sagittal re constructions performed. CT DLP: 671.3 mGycm Automated exposure control for dose reduction was used. 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 1.9 cm hypodense lesion posterior left kidney like ly a cyst. Moderate atherosclerotic calcification of the abdominal aorta and iliac arteries. 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 Accentuated lumbar lordosis. There is advanced hypertrophic facet arthropathy mid and lower lumbar sp ine with grade 1 anterolisthesis at L4-L5 and L5-S1. No pars interarticularis defect. Mild degenerative disc disease with disc bulging especially lower lumbar spine. There may be mild sang rowing of the spinal canal at L5-S1. Along with hypertrophic facet arthropathy, severe right and mode rate left neuroforaminal stenosis at this level. At L4-L5, moderate to severe right and moderate left neuroforaminal stenosis. At L3-L4, mild right-sided neural foraminal stenosis is present. Vertebral body heights are preserved. IMPRESSION: 1. ACCENTUATED LUMBAR LORDOSIS WITH SEVERE HYPERTROPHIC FACET ARTHROPATHY MID AND LOWER LUMBAR SPINE WITH GRADE 1 ANTEROLISTHESIS AT L4-L5 AND L5-S1. 2. MILD DEGENERATIVE DISC DISEASE LOWER LUMBAR SPINE. POSTERIOR DISC HERNIATION AT L5-S1 CAUSES AT LE AST MILD SPINAL CANAL STENOSIS. THERE IS SEVERE RIGHT AND MODERATE LEFT NEUROFORAMINAL STENOSIS. 3. AT L4-L5, MODERATE TO SEVERE RIGHT AND MODERATE LEFT NEUROFORAMINAL STENOSIS. 4. 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 APPROPRIATE FOLLOW-UP RECOMMEND ED. INCIDENTAL AZYGOUS CONTINUATION OF THE IVC.
== END | disposition home or self-care (01) ==
LOC: RADCTMAIN 14:57
PROVIDERS: ATTEND Orthopaedic Surgery
DX: M48.061 Spinal stenosis, lumbar region without neurogenic claudication (principal); M48.07 Spinal stenosis, lumbosacral region; M51.27 Other intervertebral disc displacement, lumbosacral region; M43.16 Spondylolisthesis, lumbar region; I72.3 Aneurysm of iliac artery
CPT/HCPCS: 72131

== ENCOUNTER 2020-04-05 06:44 | Day surgery (SDC) | payer BC, MEDICARE, OTHER ==
[2020-03-31 11:01] VITALS: BMI 27.8
[~2020-04-05 06:44] MED LIST changes: +LIDOCAINE 1% (10MG/ML) FOR IV START INTRADERMA PRN; +MIDAZOLAM 2 MG/2 ML VIAL IV PRN
[2020-04-05 07:16] VITALS: RESP 16; TEMP 96.9
[2020-04-05 07:23] LABS: Glucose,Whole Blood 119 mg/dL (75-99)
[2020-04-05] MEDS ORDERED: PROPOFOL 10 MG/ML 20 ML VIAL IV ONE (08:12)
--- NOTE | 2020-04-05 08:15 | P.GSHP ---
History of Present Illness H&P Date: 04/05/20 Chief Complaint: Colon cancer screening Patient here today for colonoscopy. Last colonoscopy 6 years ago. Family history of colon cancer in her mother and father both. No bowel complaints. Past Medical History Past Medical History: Asthma, COPD, Diabetes Mellitus, Eye Disorder, Hyperlipidemia, Hypertension, Myocardial Infarction ([place]), Osteoarthritis ([place]), Thyroid Disorder Additional Past Medical History / Comment(s): Chronic back pain-herniated discs, right common iliac aneurysm-dr. Gomes monitoring, mild left eye macular degeneration, some possible kidney issues per some recent testing-waiting for fu rther results, parents both had colon cancer Last Myocardial Infarction Date:: 2000 History of Any Multi-Drug Resistant Organisms: None Reported Past Surgical History: Section, Cholecystectomy, Heart Catheterization, Hysterectomy, Joint Replacement, Orthopedic Surgery Additional Past Surgical History / Comment(s): Left knee & left hip replaced, Carpal tunnel release bilaterally, bone removed from both thumbs with grafts, vein stripping. PAIN CLINIC INJECTIONS-BACK Past Anesthesia/Blood Transfusion Reactions: Family History of Problems w/ Anesthesia Additional Past Anesthesia/Blood Transfusion Reaction / Comment(s): Daughter had problem w/intubation. Smoking Status: Current every day smoker - Past Family History Mother Family Medical History: Cancer Additional Family Medical History / Comment(s): Colon Cancer. Father Family Medical History: Cancer Additional Family Medical History / Comment(s): Colon Cancer. Medications and Allergies Home Medications Medication Instructions Recorded Confirmed Type Levothyroxine Sodium [Synthroid] 75 mcg PO QAM 10/14/15 04/05/20 History Metoprolol Tartrate [Lopressor] 25 mg PO BID 10/14/15 03/31/20 History metFORMIN HCL [Glucophage] 500 mg PO BID 10/14/15 04/05/20 History Rosuvastatin Calcium [Crestor] 20 mg PO HS 01/18/17 04/05/20 History diazePAM [Valium] 5 mg PO TID PRN 01/18/17 04/05/20 History Albuterol Inhaler (Mhu) [Ventolin 1 - 2 puff INHALATION RT-Q6H PRN 06/12/17 04/05/20 History Hfa Inhaler] Loratadine [Claritin] 10 mg PO HS 06/18/17 04/05/20 History Aspirin 325 mg PO QAM 03/25/18 04/05/20 History rOPINIRole HCL [Requip] 1 mg PO HS 03/25/18 04/05/20 History HYDROcodone/APAP 7.5-325MG [[place] 1 each PO Q8H PRN 04/04/18 04/05/20 History 7.5] amLODIPine [Norvasc] 5 mg PO QAM 04/22/18 03/31/20 History Fluticasone Nasal [place] [Flonase 2 spr EA NOSTRIL DAILY 12/11/18 04/05/20 History Nasal [place]] Ibuprofen [Motrin] 800 mg PO TID PRN 12/11/18 04/05/20 History Montelukast [Singulair] 10 mg PO HS 12/11/18 04/05/20 History Sertraline [Zoloft] 100 mg PO DAILY 12/11/18 03/31/20 History Venlafaxine HCl [Effexor XR] 75 mg PO DAILY 12/11/18 03/31/20 History Black Cohosh Root [Black Cohosh] 200 mg PO DAILY 03/31/20 04/05/20 History Multivitamins, Thera [Multivitamin 1 tab PO DAILY 03/31/20 04/05/20 History (formulary)] Ubidecarenone [Co Q-10] 200 mg PO DAILY 03/31/20 04/05/20 History Allergies Allergy/AdvReac Type Severity Reaction Status Date / Time enoxaparin sodium Allergy Rash/Hives Verified 03/31/20 10:31 [From Lovenox] Iodinated Contrast Media Allergy Anaphylaxis Verified 03/31/20 10:31 [Iodinated Contrast- Oral and IV Dye] Sulfa (Sulfonamide Allergy Rash/Hives Verified 03/31/20 10:31 Antibiotics) sulfamethoxazole Allergy Rash/Hives Verified 03/31/20 10:31 [From Bactrim] trimethoprim [From Bactrim] Allergy Rash/Hives Verified 03/31/20 10:31 TB Serum Allergy Anaphylaxis Uncoded 03/31/20 10:31 Surgical - Exam Vital Signs Temp Pulse Resp BP Pulse Ox 96.9 F L 70 16 131/75 95 04/05/20 07:15 04/05/20 07:15 04/05/20 07:15 04/05/20 07:15 04/05/20 07:15 Physical exam: General: Well-developed, well-nourished HEENT: Normocephalic, sclerae nonicteric Abdomen: Nontender, nondistended Extremities: No edema Neuro: Alert and oriented Results - Labs Abnormal Lab Results - Last 24 Hours (Table) 04/05/20 Range/Units 07:19 POC Glucose (mg/dL) 119 H (75-99) mg/dL Assessment and Plan (1) Colon cancer screening Narrative/Plan: Will proceed with colonoscopy Current Visit: Yes Status: Acute Code(s): Z12.11 - ENCOUNTER FOR SCREENING FOR MALIGNANT NEOPLASM OF COLON SNOMED Code(s): 359557508
--- NOTE | 2020-04-05 08:38 | P.PCN ---
Date of Procedure: 04/05/20 Procedure(s) Performed: PREOPERATIVE DIAGNOSIS: Colon cancer screening, family history POSTOPERATIVE DIAGNOSIS: Transverse colon polyp 2 PROCEDURE: Colonoscopy with snare polypectomy ANESTHESIA: MAC SURGEON: Shen Mays M.D. SPECIMENS: Colon polyps ENDOSCOPIC PROCEDURE: The patient was placed on the endoscopy table in the left decubitus position. The Olympus colonoscope was inserted into the anus and passed under direct visualization to the base of the cecum. The appendiceal orifice was visualized. From that point the scope was slowly withdrawn inspecting all surfaces carefully. There were no neoplastic inflammatory or polypoid lesions throughout the cecum and ascending colon. In the transverse colon there were 2 small polyps both removed using the snare with cautery technique. The remainder of the transverse descending sigmoid and rectum appeared normal. There was no visible diverticulosis. Digital rectal examination was normal. The patient was taken to the recovery room in stable condition per anesthesia guidelines. RECOMMENDATIONS: Await biopsy results. Plan colonoscopy 5 years.
[2020-04-05 08:57] VITALS: BP 130/78; PULSE 76
== END 2020-04-05 09:25 | disposition home or self-care (01) ==
LOC: ORWHC2ENDO 06:44
PROVIDERS: ATTEND Surgery
DX: Z12.11 Encounter for screening for malignant neoplasm of colon (principal); D12.3 Benign neoplasm of transverse colon; Z88.2 Allergy status to sulfonamides; Z88.7 Allergy status to serum and vaccine; Z88.8 Allergy status to other drugs, medicaments and biological substances; Z80.0 Family history of malignant neoplasm of digestive organs; I25.2 Old myocardial infarction; I10 Essential (primary) hypertension; E78.5 Hyperlipidemia, unspecified; J44.9 Chronic obstructive pulmonary disease, unspecified; F17.210 Nicotine dependence, cigarettes, uncomplicated; E11.9 Type 2 diabetes mellitus without complications; E07.9 Disorder of thyroid, unspecified; M19.90 Unspecified osteoarthritis, unspecified site; G89.29 Other chronic pain; Z79.890 Hormone replacement therapy; Z79.84 Long term (current) use of oral hypoglycemic drugs; Z79.899 Other long term (current) drug therapy; Z90.49 Acquired absence of other specified parts of digestive tract; Z98.891 History of uterine scar from previous surgery; Z90.710 Acquired absence of both cervix and uterus; Z98.890 Other specified postprocedural states; Z96.652 Presence of left artificial knee joint; Z96.642 Presence of left artificial hip joint; Z79.1 Long term (current) use of non-steroidal anti-inflammatories (NSAID); Z79.82 Long term (current) use of aspirin; Z91.041 Radiographic dye allergy status
CPT/HCPCS: 88305; 45385; J2704

== ENCOUNTER → 2020-07-11 | Outpatient (CLI) | payer BC, MEDICARE, OTHER ==
--- NOTE | 2020-07-12 08:01 | MR ---
MRI CERVICAL SPINE: CLINICAL HISTORY: Cervical radiculopathy, headache with neck pain extending into left upper extremity . TECHNIQUE: Multiplanar, multisequence imaging of the cervical spine is performed without IV contrast. COMPARISON: None. FINDINGS: Sagittal images of the cervical spine show the craniocervical junction to appear within nor mal limits. The cervical and upper thoracic spinal cord is normal in course, caliber, and signal. Sl ight grade 1 anterolisthesis C4 on C5. The vertebral body and intravertebral disk heights are normal . Small hemangioma superior interior T1 vertebra sagittal image 9. Axial images show C2-C3 level to appear within normal limits. Axial images at C3-C4 level show tiny central disc protrusion minimally effacing the anterior thecal sac, patent bilateral neural foramina. Axial images at C4-C5 level show left paracentral/foraminal spur disc complex effacing anterolateral thecal sac and causing asymmetric moderate to severe left-sided neural foraminal narrowing axial imag e 34 for reference. Axial images at C5-C6 level showed broad based posterior disc protrusion with left foraminal spur dis c complex axial image 26. Mild effacement of the anterior thecal sac, there is asymmetric mild to mod erate left-sided neural foraminal narrowing. Axial images at C6-C7 level show broadbase left paracentral spur disc complex with foraminal extensio n effacing anterior thecal sac and causing mild right with advanced left-sided neural foraminal narro wing. Axial images at C7-T1 level show right paracentral spur disc protrusion effacing the anterior thecal sac, there is additional foraminal disc protrusion on the left causing mild to moderate left-sided ne ural foraminal narrowing. Patent right-sided neural foramina. IMPRESSION: Multilevel degenerative changes as detailed above, asymmetric multilevel left-sided neura l foraminal narrowing noted which correlates with patient's symptoms.
== END | disposition home or self-care (01) ==
LOC: RADMRIMAIN 06:01
PROVIDERS: ATTEND Orthopaedic Surgery
DX: M50.221 Other cervical disc displacement at C4-C5 level (principal); M50.222 Other cervical disc displacement at C5-C6 level; M50.223 Other cervical disc displacement at C6-C7 level; M47.812 Spondylosis without myelopathy or radiculopathy, cervical region
CPT/HCPCS: 72141

== ENCOUNTER → 2020-10-10 | Outpatient (CLI) | payer BC, MEDICARE ==
[2020-10-10 15:26] LABS: Chol/HDL Ratio 2.73
== END | disposition home or self-care (01) ==
LOC: LABWHC1 10:18
PROVIDERS: ATTEND Internal Medicine Interventional Cardiology
DX: E78.2 Mixed hyperlipidemia (principal)
CPT/HCPCS: 36415; 80061; 84450; 84460

== ENCOUNTER → 2020-10-10 | Outpatient (CLI) | payer BC, MEDICARE ==
--- NOTE | 2020-10-13 15:14 | MM ---
Reason for exam: screening (asymptomatic). Last mammogram was performed 18 years and 4 months ago. Physical Findings: A clinical breast exam by your physician is recommended on an annual basis and results should be correlated with mammographic findings. MG 3D Screening Mammo W/Cad Bilateral CC and MLO view(s) were taken. No prior studies available for comparison. There are scattered fibroglandular densities. Stable benign calcifications. There is no discrete abnormality. ASSESSMENT: Benign, BI-RAD 2 RECOMMENDATION: Routine screening mammogram of both breasts in 1 year.
== END | disposition home or self-care (01) ==
LOC: RADMAMWWP 10:20
PROVIDERS: ATTEND Family Medicine
DX: Z12.31 Encounter for screening mammogram for malignant neoplasm of breast (principal)
CPT/HCPCS: 77063; 77067

== ENCOUNTER → 2020-11-28 | Outpatient (CLI) | payer BC, MEDICARE, OTHER ==
--- NOTE | 2020-11-29 01:53 | MR ---
EXAMINATION TYPE: MR lumbar spine wo con DATE OF EXAM: 11/28/2020 COMPARISON: 04/07/2019 HISTORY: Low back pain into left lower extremitiy Images obtained of the lumbar spine without contrast. Lumbar vertebra have fairly normal alignment. There is 3 mm anterior subluxation of L4 in relation L5 . There is posterior disc herniation at L4-5 and L5-S1. Disc herniation is larger at L5-S1 with some extension to the right side. Exam limited by motion. There is some mild lateral recess stenosis at L4 -5 and L5-S1. I see no bony destructive process. There is hypertrophic facet arthropathy in the lower lumbar spine. There is no paraspinal mass. There is no compression fracture. I see no focal bone destruction. IMPRESSION: There is some facet arthropathy and lateral recess stenosis at L4-5 and L5-S1. There is degenerative minimal first-degree L4-5 spondylolisthesis. Posterior disc herniations at L4-5 and L5-S1. No acute b coco abnormality.
== END | disposition home or self-care (01) ==
LOC: RADMRIMAIN 20:24
PROVIDERS: ATTEND Family Medicine
DX: M51.27 Other intervertebral disc displacement, lumbosacral region (principal); M48.061 Spinal stenosis, lumbar region without neurogenic claudication; M43.16 Spondylolisthesis, lumbar region
CPT/HCPCS: 72148

== ENCOUNTER → 2021-05-03 | Outpatient (CLI) | payer BC, MEDICARE, OTHER ==
--- NOTE | 2021-05-03 10:06 | CT ---
EXAMINATION TYPE: CT cervical spine wo con DATE OF EXAM: 05/03/2021 COMPARISON: 07/11/2020 MRI. HISTORY: radiculopathy, pre op CT DLP: 578 mGycm Alignment is anatomic. Evaluation of the spinal canal is limited due to artifact and resolution. Odo ntoid intact. The prevertebral soft tissue structures are within normal limits. There is narrowing of the atlantoaxial. Atherosclerotic change of the carotid arteries. At C2-C3 there is mild narrowing disc space. No obvious disc herniation or foraminal encroachment. At C3-C4 there is degenerative change. There is facet arthropathy with anterior spur formation. Minim al anterolisthesis appears to be degenerative. No Canal stenosis. Mild right foraminal encroachment. At C4-C5 there is grade 1 anterolisthesis. There is more advanced facet arthropathy with uncovertebra l joint hypertrophy and mild bilateral foraminal encroachment. No obvious disc herniation or canal st enosis. C5-C6 there is degenerative disc disease with uncovertebral joint hypertrophy and facet arthropathy. Mild bilateral foraminal encroachment. No obvious disc herniation or canal stenosis At C6-C7 degenerative disc disease. Mild uncovertebral joint hypertrophy and mild foraminal encroachm ent. No obvious disc herniation or canal stenosis. C7-T1 there is degenerative disc disease. There is prominent posterior spurring resulting in mild eff acement of thecal sac. This is seen greater right paracentrally. An similar to the prior MRI. IMPRESSION: 1. Multilevel degenerative disc disease and facet arthropathy with grade 1 anterolisthesis C3 on C4 a nd C4 on C5. Multilevel foraminal encroachment as discussed above similar to the prior MRI.
== END | disposition home or self-care (01) ==
LOC: RADCTMAIN 08:25
PROVIDERS: ATTEND Orthopaedic Surgery
DX: Z01.818 Encounter for other preprocedural examination (principal); M50.121 Cervical disc disorder at C4-C5 level with radiculopathy; M47.22 Other spondylosis with radiculopathy, cervical region; M43.12 Spondylolisthesis, cervical region
CPT/HCPCS: 72125

== ENCOUNTER → 2021-09-13 | Outpatient (CLI) | payer BC, MEDICARE, OTHER ==
--- NOTE | 2021-09-13 09:37 | CT ---
EXAMINATION TYPE: CT lumbar spine wo con DATE OF EXAM: 09/13/2021 7:57 AM COMPARISON: CT dated 09/18/2019 HISTORY: Spondylolisthesis CT DLP: 639.00 mGycm Automated exposure control for dose reduction was used. Technique: Unenhanced CT of the lumbar spine was performed. Bone and soft tissue window settings are submitted as well as coronal and sagittal reconstructions. FINDINGS: Exaggerated lumbar lordosis. Grade 1 anterolisthesis of L4 over L5 and L5 over S1, stable, with sever e bilateral L4-5 and L5-S1 facet osteoarthropathy. No definite vertebral body collapse or acute displ aced fracture. Milder multilevel lower thoracic and lumbar facet osteoarthropathy. L1-L2: Mild diffuse posterior disc bulge with posterior osteophytosis and mild facet osteoarthropathy , causing no significant central spinal canal stenosis or significant neural foraminal stenosis. L2-L3: No significant disc herniation or protrusion. No significant central spinal canal stenosis or neural foraminal stenosis. Bilateral facet arthropathy. L3-L4: Mild diffuse posterior disc bulge, associated with mild ligamentum flavum hypertrophy and face t osteoarthropathy, causing mild central spinal canal stenosis without significant neural foraminal s tenosis. L4-L5: Grade 1 anterolisthesis with diffuse posterior pseudodisc bulge associated with severe bilater al facet osteoarthropathy and right ligamentum flavum hypertrophy, causing moderate to severe central spinal canal stenosis, moderate left and severe right neural foraminal stenosis. Questionable left l aminectomy at that level. L5-S1: Grade 1 anterolisthesis with diffuse posterior pseudodisc bulge and focal central protrusion, associated with severe bilateral facet osteoarthropathy, posterior osteophytosis and right ligamentum flavum hypertrophy, causing moderate to severe central spinal canal stenosis, severe right and moder ate left neuroforaminal stenosis. Questionable left laminectomy at that level. Left renal cyst without suspicious features, not completely included in the scan. Scattered arterial atherosclerotic calcifications. 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 No paraspinal mass. Degener ative changes of the sacroiliac joints. IMPRESSION: Severe bilateral L4-5 and L5-S1 facet osteoarthropathy with grade 1 anterolisthesis of L4 over L5 and L5 over S1. Associated degenerative changes and multilevel DDD with neural foraminal stenosis and sp inal canal stenosis as detailed above. Recommend clinical correlation and spine surgical consultation . Further MRI assessment can be considered if clinically required.
== END | disposition home or self-care (01) ==
LOC: RADCTMAIN 07:29
PROVIDERS: ATTEND Orthopaedic Surgery
DX: M43.16 Spondylolisthesis, lumbar region (principal); M51.26 Other intervertebral disc displacement, lumbar region; M48.061 Spinal stenosis, lumbar region without neurogenic claudication; M99.73 Connective tissue and disc stenosis of intervertebral foramina of lumbar region
CPT/HCPCS: 72131

== ENCOUNTER → 2024-06-12 | Outpatient (CLI) | payer MEDICARE, BC ==
[2024-06-12 15:49] LABS: Anion Gap 12.1 mmol/L (4.00-12.00); Carbon Dioxide 26.9 mmol/L (21.6-31.8); Potassium 4.6 mmol/L (3.5-5.5)
== END | disposition home or self-care (01) ==
LOC: LABWHC1 09:00
PROVIDERS: ATTEND Psychiatry & Neurology Neurology
DX: R20.2 Paresthesia of skin (principal); Z79.899 Other long term (current) drug therapy
CPT/HCPCS: 36415; 80051; 82607; 83036; 83735